=== PATIENT | female | born 1955 | race Two or more races ===

== ENCOUNTER 2024-12-11 03:18 | Inpatient (IN) | payer BC, MEDICAID ==
[2024-12-11] VITALS (7 sets, daily range): BP systolic 109–131; BP diastolic 69–81; PULSE 57–72; RESP 17–20; TEMP 96.4–98.2; O2SAT 95–98
[~2024-12-11] VITALS: Ht 167.6 cm; Wt 69.4 kg
--- NOTE | 2024-12-11 03:50 | ED.PDOC ---
History of Present Illness HPI Comments 69-year-old female who came to ER via EMS for dizziness. Patient denies any medical problems. Patient states she was feeling dizzy, when she had a witnessed near syncopal attack when she was lying at bed. Family members noted that patient appeared confused and nonverbal for about a minute so paramedics were called. Blood sugar on scene was 89, blood pressure 151/77 mm Hg Chief Complaint: Dizziness Time Seen by MD: 03:49 Reviewed Notes: Inspector Fuel Hose Notes Allergies: Coded Allergies: NO KNOWN ALLERGIES (Unverified , 12/11/24) Home Meds Reported Medications Naproxen (NAPROSYN TABLET) 500 Mg Tb, 1 TAB PO BID, #60 TAB 1 Refill 12/11/24 Acetaminophen (Acetaminophen) 325 Mg Tab, 325 MG PO Q4HP PRN for MILD PAIN for 30 Days, MG 0 Refills 12/11/24 Information Source: Patient, Emergency Med Personnel Mode of Arrival: EMS Severity: Moderate Timing: Minutes Duration: Since onset Review of Systems REVIEW OF SYSTEMS: No fever, no chills, or fatigue HEENT: No sore throat, no earache, no congestion, no neck pain. Cardiac: No chest pain. No palpitations. Lungs: No shortness of breath, no cough. GI: No nausea, no vomiting, no diarrhea, no constipation, no abdominal pain : No dysuria, frequency, or urgency. No hematuria. Musculoskeletal: No joint pain , no joint swelling, no extremity edema. Skin: No rash, no itching. Neuro: No headache, (+) dizziness, no weakness (+) fainting Vital Signs Vital Signs Date Time Temp Pulse Resp B/P (MAP) Pulse Ox O2 Delivery O2 Flow Rate FiO2 12/11/24 06:00 72 20 115/66 (82) 12/11/24 05:00 97 12/11/24 04:02 98.5 98.5 12/11/24 04:02 Room Air* 0 21 Physical Exam General: Awake, alert and oriented. No acute distress. Skin: Skin in warm, dry and intact. Appropriate color for ethnicity. Nailbeds pink with no cyanosis. HEENT: The head is normocephalic and atraumatic. Conjunctivae are clear without exudates or hemorrhage. Sclera is non-icteric. EOM are intact. No signs of nystagmus. Eyelids are normal in appearance without swelling or lesions. Oral mucosa is pink and moist Neck: The neck is supple with normal range of motion. No JVD. Cardiac: Heart rate and rhythm are normal. No murmurs, gallops, or rubs are auscultated. Respiratory: No signs of respiratory distress. Lung sounds are clear in all lobes bilaterally without rales, rhonchi, or wheezes. Abdominal: Abdomen is soft, non-tender without distention. Bowel sounds are present and normoactive in all four quadrants. Extremities: Upper and lower extremities are atraumatic in appearance without deformity or edema. Neurological: The patient is awake, alert and oriented to person, place, and time with normal speech. Speech is clear. There is no facial asymmetry. No upper or lower extremity drift. Past Medical History PAST MEDICAL HISTORY: Denies Surgical History: Appendectomy, BTL CHANNEL DEVELOPMENT MANAGER History: Denies all CHANNEL DEVELOPMENT MANAGER Hx Family History Family History: Reviewed,noncontributory to illness Social History Smoker: Non-Smoker Alcohol: Denies ETOH Use Drugs: Denies Drug Use Lives In: Home Was a procedure done? Was a procedure done?: No EKG EKG : Pulse Rate (adult): 74 Cardiac Rhythm: NSR Differential Dx Considerations may include: Anemia, electrolyte imbalance, hypotension, hypoglycemia, syncope,, TIA X-Ray, Labs, Meds, VS Vital Signs Date Time Temp Pulse Resp B/P (MAP) Pulse Ox O2 Delivery O2 Flow Rate FiO2 12/11/24 06:00 72 20 115/66 (82) 12/11/24 05:00 69 22 117/69 (85) 97 12/11/24 04:43 74 12/11/24 04:36 74 12/11/24 04:02 98.5 70 20 120/63 (82) 97 98.5 12/11/24 04:02 70 20 97 Room Air* 0 21 12/11/24 03:27 97.8 82 18 151/75 (100) 99 97.8 Lab Test 12/11/24 07:09 12/11/24 06:07 12/11/24 04:19 Range/Units Troponin I High Sensitivity 28 26 12 </=34 ng/L White Blood Count 5.4 4.4-10.8 10^3/uL Red Blood Count 4.50 4.0-5.20 10^6/uL Hemoglobin 13.5 12.2-16.2 g/dL Hematocrit 40.2 36.0-46.0 % Mean Corpuscular Volume 89.2 80.0-100.0 fL Mean Corpuscular Hemoglobin 30.1 28.0-32.0 pg Mean Corpuscular Hemoglobin Concent 33.7 32.0-36.0 g/dL Red Cell Distribution Width 14.0 11.8-14.3 % Platelet Count 321 140-450 10^3/uL Mean Platelet Volume 7.0 6.9-10.8 fL Neutrophils (%) (Auto) 50.7 37.0-80.0 % Lymphocytes (%) (Auto) 39.4 10.0-50.0 % Monocytes (%) (Auto) 5.9 0.0-12.0 % Eosinophils (%) (Auto) 3.0 0.0-7.0 % Basophils (%) (Auto) 1.0 0.0-2.0 % Neutrophils # (Auto) 2.7 1.6-8.6 10 ^3/uL Lymphocytes # (Auto) 2.1 0.4-5.4 10 ^3/uL Monocytes # (Auto) 0.3 0-1.3 10 ^3/uL Eosinophils # (Auto) 0.2 0-0.8 10 ^3/uL Basophils # (Auto) 0.1 0-0.2 10 ^3/uL Nucleated Red Blood Cells 0.1 % Sodium Level 141 136-145 mmol/L Potassium Level 3.5 3.5-5.1 mmol/L Chloride Level 105 98-107 mmol/L Carbon Dioxide Level 28 20-31 mmol/L Anion Gap 8 5-15 Blood Urea Nitrogen 16 9-23 mg/dL Creatinine 0.83 0.550-1.02 mg/dL Glomerular Filtration Rate Calc 77 >90 mL/min BUN/Creatinine Ratio 19.3 10.0-20.0 Serum Glucose 99 74-106 mg/dL Hemoglobin A1c 5.3 <5.7 % A1C Calcium Level 10.2 8.7-10.4 mg/dL B-Type Natriuretic Peptide 21.69 0-100 pg/mL Triglycerides Level 208 H < 150 mg/dL Cholesterol Level 261 H < 200 mg/dL LDL Cholesterol 185 H < 100 mg/dL HDL Cholesterol 47 40-59 mg/dL Current Medications Medications (Trade) Dose Ordered Sig/Cierra Route Start Time Stop Time Status Last Admin Sodium Chloride 1,000 ml @ 1,000 mls/hr Q1H ONCE IV 12/11/24 03:30 12/11/24 04:29 DC 12/11/24 04:32 Sodium Chloride 500 ml @ 500 mls/hr Q1H ONCE IV 12/11/24 05:30 12/11/24 06:29 DC 12/11/24 05:39 Sodium Chloride 1,000 ml @ 100 mls/hr Q10H ONCE IV 12/11/24 05:30 12/11/24 09:24 DC 12/11/24 05:49 Time of 1ST Reevaluation: 03:45 Reevaluation 1ST: Unchanged Patient Education/Counseling: Need For Follow Up Family Education/Counseling: No Family Present SEPSIS Sepsis Screen Physician Orders Cruise Staff Member (12/11/24 ) Orthostatic Vital Signs (12/11/24 ) Saline Lock (12/11/24 03:20) Fall Precautions Initiated (12/11/24 03:20) Electrocardigram (12/11/24 04:20) Electrocardigram (12/11/24 06:20) Head Without Contrast (12/11/24 03:53) Vital Signs Date Time Temp Pulse Resp B/P (MAP) Pulse Ox O2 Delivery O2 Flow Rate FiO2 12/11/24 06:00 72 20 115/66 (82) 12/11/24 05:00 69 22 117/69 (85) 97 12/11/24 04:43 74 12/11/24 04:36 74 12/11/24 04:02 98.5 70 20 120/63 (82) 97 98.5 12/11/24 04:02 70 20 97 Room Air* 0 21 12/11/24 03:27 97.8 82 18 151/75 (100) 99 97.8 Laboratory Tests Test 12/11/24 04:19 White Blood Count 5.4 10^3/uL (4.4-10.8) Departure 1 Departure Time of Disposition: 21:06 Impression: Primary Impression: Syncope Disposition: 09 ADMITTED INPATIENT Condition: Stable Comments 69 year old female with syncope Patient admitted to hospitalist service for further treatment, evaluation and monitoring. Extensive evaluation was performed in attempt to identify or rule out: (See differential diagnosis section) The following tests were ordered, and results were reviewed by me and discussed with patient: (See diagnostic results section) The following test were independently interpreted by me: EKG I reviewed and agreed with the following test results read by other providers: N/A I reviewed the following notes from the pt's past medical encounters: N/A Additional information was gathered from interviewing the following independent historians: EMS, patient's daughter Discussion of management or test interpretation with external physician/other qualified health rn care transition: N/A Addressed an acute or chronic illness that poses a threat to life or bodily function: Syncope Decision regarding hospitalization or escalation of hospital level of care: Risk and benefits of admission for further treatment of patient's condition was considered. Due to patient's current clinical condition, high risk of decline and poor outcome if discharged and need for further inpatient management and monitoring, patient will be admitted to the hospital. Discussed with patient. Drug therapy requiring intensive monitoring for toxicity: N/A Parenteral controlled substances: N/A Decision regarding elective major surgery with identified patient or procedure risk factors: N/A Decision regarding emergency major surgery: N/A Decision not to resuscitate or to de-escalate care because of poor prognosis: N/A Diagnosis or treatment significantly limited by social determinants of health: Patient lives out of the area, does not have a PCP Critical Care Note Critical Care Time?: No Stability Stability form required: No Heart Score Heart Score: Heart Score Response (Comments) Value History N/A 0 EKG N/A 0 Age N/A 0 Risk Factors N/A 0 Troponin N/A 0 Total 0 I personally scribed for CHARLENE CRUM MD ([email or web address]) on 12/11/24 at 03:50. Electronically submitted by Khanh Lagunas ([employer]). I personally scribed for CHARLENE CRUM MD ([email or web address]) on 12/11/24 at 03:51. Electronically submitted by Khnah Lagunas ([facility]). I personally scribed for CHARLENE CRUM MD ([email or web address]) on 12/11/24 at 04:43. Electronically submitted by Khanh Lagunas ([email or web address]). CHARLENE CRUM MD Dec 11, 2024 03:50
[2024-12-11] MEDS: SODIUM CHLORIDE 0.9% 1,000 ML IV ONE ×2 (04:32→05:49)
[2024-12-11 04:37] LABS: Hematocrit 40.2 % (36.0-46.0); Hemoglobin 13.5 g/dL (12.2-16.2); Mean Corpuscular Hemoglobin 30.1 pg (28.0-32.0); Mean Corpuscular Volume 89.2 fL (80.0-100.0); Nucleated Red Blood Cells % 0.1 %
[2024-12-11 04:47] LABS: Chloride 105 mmol/L (98-107); Sodium 141 mmol/L (136-145)
[2024-12-11 04:48] LABS: Anion Gap 8 (5-15); Carbon Dioxide 28 mmol/L (20-31)
[2024-12-11 04:49] LABS: Calcium 10.2 mg/dL (8.7-10.4); Potassium 3.5 mmol/L (3.5-5.1)
[2024-12-11 04:53] LABS: Glucose 99 mg/dL (74-106)
[2024-12-11 04:54] LABS: BUN/Creatinine Ratio 19.3 (10.0-20.0); Blood Urea Nitrogen 16 mg/dL (9-23)
[2024-12-11] MEDS: SODIUM CHLORIDE 0.9% 500 ML IV ONE (05:39)
--- NOTE | 2024-12-11 05:55 | DVH ---
EXAM: CT HEAD WITHOUT CONTRAST INDICATION: Near syncope, altered mental status TECHNIQUE: CT of the head without intravenous contrast. Radiation Dose : 1. Head: CT Dose: CTDI volume is 53.7 mGy. Dose-length product is 1058.35 mGy*cm The dose indicators for CT are the volume Computed Tomography (CT) Dose Index (CTDIvol) and the Dose Length Product (DLP), and are measured in units of mGy and mGy-cm, respectively. These indicators are not patient dose, but values generated from the CT scanner acquisition factors. The report includes radiation exposure data for exposures received during this examination. COMPARISON: None FINDINGS: There is no evidence of acute intracranial hemorrhage, extra-axial collection, mass effect, midline s hift, herniation or hydrocephalus. The ventricles, sulci and cisterns are age appropriate. The escamilla-white differentiation is intact. The visualized paranasal sinuses and mastoid air cells are clear. The surrounding soft tissues and osseous structures are unremarkable. IMPRESSION: 1. No acute intracranial abnormality. Radiation optimization: All CT scans at this facility use at least one of these dose optimization laith hniques: automated exposure control mA and/or kV adjustment per patient size (includes targeted exam s where dose is matched to clinical indication) or iterative reconstruction.
[2024-12-11] MEDS ORDERED: ACETAMINOPHEN 325 MG TAB PO PRN (08:00)
[2024-12-11] MEDS ORDERED: NITROGLYCERIN 0.4 MG SL TAB SL PRN (08:00)
[2024-12-11] MEDS ORDERED: HYDROcodone-ACET 5/325MG TAB PO PRN (08:00)
[2024-12-11] MEDS ORDERED: ONDANSETRON HCL 4 MG/2 ML VIAL IV PRN (08:00)
[2024-12-11] MEDS ORDERED: MORPHINE SULFATE INJ 2 MG/ml SYRG IV PRN ×2 (08:00)
--- NOTE | 2024-12-11 08:03 | DVHHP2 ---
Admitting Diagnosis: Dizziness History of Present Illness 69 year old female is complaining of dizziness. Family members stated they noticed patient was confused and non verbal, therefore EMS were called. Blood sugar was 89 with blood pressure of 151/77. While in the emergency department the patient was evaluated by the provider. Patient will be admitted for further evaluation and treatment. I discussed admission with the patient/family and is in agreement to treatment plan. Allergies: Coded Allergies: NO KNOWN ALLERGIES (Unverified , 12/11/24) Home Meds Reported Medications Naproxen (NAPROSYN TABLET) 500 Mg Tb, 1 TAB PO BID, #60 TAB 1 Refill 12/11/24 Acetaminophen (Acetaminophen) 325 Mg Tab, 325 MG PO Q4HP PRN for MILD PAIN for 30 Days, MG 0 Refills 12/11/24 Current Medications Current Medications Medications (Trade) Dose Ordered Sig/Cierra Route PRN Reason Start Time Stop Time Status Last Admin Sodium Chloride 1,000 ml @ 120 mls/hr Q8H20M IV 12/11/24 08:00 12/11/24 09:26 Acetaminophen/ Hydrocodone Bitart ([place] 5/325MG Tab) 1 tab Q4HP PRN PO MODERATE PAIN (4-6 PAIN SCALE) 12/11/24 08:00 Ondansetron HCl (Zofran) 4 mg Q4HP PRN IV NAUSEA / VOMITING 12/11/24 08:00 Enoxaparin Sodium (Lovenox) 40 mg DAILY SC 12/11/24 10:00 12/11/24 09:45 Acetaminophen (Tylenol Tablet) 650 mg Q6HP PRN PO PAIN SCALE 1-3 OR TEMP>100.4 12/11/24 08:00 Morphine Sulfate 2 mg Q4HPRN PRN IV SEVERE PAIN (7-10 PAIN SCALE) 12/11/24 08:00 Famotidine (Pepcid Tablet) 40 mg DAILY PO 12/11/24 10:00 12/11/24 09:44 Nitroglycerin (Ntrostat Sublingual) 0.4 mg Q5MINP PRN SL FOR CHEST PAIN 12/11/24 08:00 Morphine Sulfate 2 mg Q30M PRN IV FOR CHEST PAIN 12/11/24 08:00 Hydralazine HCl (Apresoline Injection) 10 mg Q6HP PRN IV SBP>150 12/11/24 13:30 Review of Systems Dizziness Vital Signs Vital Signs Date Time Temp Pulse Resp B/P (MAP) Pulse Ox O2 Delivery O2 Flow Rate FiO2 12/11/24 12:32 96.5 57 17 128/79 (95) 98 96.5 12/11/24 11:45 Room Air* 0 21 Physical Exam General Appearance: alert, no distress HEENT: EOMI, PERRLA, normal external inspect of ears, no icterus, no nasal drainage Neck: no carotid bruit, no jugular venous distention (JVD), no lymphadenopathy Chest: normal thorax Respiratory: clear to auscultation, normal air movement Cardiovascular: regular rate and rhythm, no diastolic murmur, no jugular venous distention (JVD), no rub, no systolic murmur Abdominal: soft, no hepatomegaly, no mass, no splenomegaly, no tenderness Musculoskeletal: no joint tenderness, no swelling Extremities: normal pulses, no calf tenderness, no clubbing, no cyanosis, no edema Skin: no bruising, no jaundice, no rash Neurological: alert, No focal deficit SEPSIS Sepsis Screen Date sepsis recognized/suspect: Dec 11, 2024 Time Sepsis recognized/suspect: 401 Recent Procedure: No On Antibiotic Therapy: No Respiratory Rate >20: No Heart Rate >90: No Temp<36 C (96.8 F) or >38.3 C: No SBP <90 or MAP <65 mmHG: No New Acute Mental Status Change: No Is the patient on CPAP, BIPAP,: No Physician Orders Middleware Engineer (12/11/24 ) Orthostatic Vital Signs (12/11/24 ) Saline Lock (12/11/24 03:20) Fall Precautions Initiated (12/11/24 03:20) Electrocardigram (12/11/24 04:20) Electrocardigram (12/11/24 06:20) Head Without Contrast (12/11/24 03:53) Admit (12/11/24 07:58) Code Status (12/11/24 07:58) Sodium Chloride 0.9% (12/11/24 08:00) Hydrocodone-Acet 5/325mg Tab (Tickfaw 32 (12/11/24 08:00) Ondansetron Hcl (Zofran) (12/11/24 08:00) Enoxaparin Sodium (Lovenox) (12/11/24 10:00) Complete Blood Count (12/12/24 04:00) Comprehensive Metabolic Panel (12/12/24 04:00) Cardiac Diet-2gna,Lofat,Lochol (12/11/24 Breakfast) Echo 2d Mode Cardiac Dop (12/11/24 07:58) Condition: Fair (12/11/24 07:58) Acetaminophen Tablet (Tylenol Tablet) (12/11/24 08:00) Morphine Sulfate Injection (12/11/24 08:00) *Consult Dr. Jay Cassidy (12/11/24 07:58) *Consult Dr. Ashok Christiansen (12/11/24 07:58) Brain Head Wo Contrast (12/11/24 07:58) Famotidine Tablet (Pepcid Tablet) (12/11/24 10:00) Orthostatic Vital Signs (12/11/24 07:58) Nitroglycerin Sublingual (Ntrostat Subli (12/11/24 08:00) Morphine Sulfate Injection (12/11/24 08:00) Stat Ekg For Chest Pain (12/11/24 07:58) Notify Md Of Changes From Base (12/11/24 07:58) Ferry Pilot For 24 Hours (12/11/24 07:58) Emergency Dysrhythmia Protocol (12/11/24 07:58) Rhythm Strips Once Every Shift (12/11/24 07:58) Oxygen By Nasal Cannula (12/11/24 07:58) Chest Xray 1 View (12/11/24 08:02) Hydralazine Injection (Apresoline Inject (12/11/24 13:30) Vital Signs Date Time Temp Pulse Resp B/P (MAP) Pulse Ox O2 Delivery O2 Flow Rate FiO2 12/11/24 12:32 96.5 57 17 128/79 (95) 98 96.5 12/11/24 11:45 72 Room Air* 0 21 12/11/24 10:50 96.4 58 17 131/81 (98) 98 96.4 12/11/24 10:43 62 12/11/24 10:00 59 20 124/76 (92) 96 12/11/24 08:00 66 12/11/24 08:00 Room Air* 0 21 12/11/24 08:00 98.6 98.6 12/11/24 08:00 98.6 67 15 99/68 (78) 96 98.6 12/11/24 06:00 72 20 115/66 (82) 12/11/24 05:00 69 22 117/69 (85) 97 12/11/24 04:43 74 12/11/24 04:36 74 12/11/24 04:02 98.5 70 20 120/63 (82) 97 98.5 12/11/24 04:02 70 20 97 Room Air* 0 21 12/11/24 03:27 97.8 82 18 151/75 (100) 99 97.8 Laboratory Tests Test 12/11/24 04:19 White Blood Count 5.4 10^3/uL (4.4-10.8) Medications Medications Dose Ordered Sig/Cierra Route Start Time Stop Time Status Last Admin Dose Admin Enoxaparin Sodium 40 mg DAILY SC 12/11/24 10:00 12/11/24 09:45 Famotidine 40 mg DAILY PO 12/11/24 10:00 12/11/24 09:44 Sodium Chloride 500 ml @ 500 mls/hr Q1H ONCE IV 12/11/24 05:30 12/11/24 06:29 DC 12/11/24 05:39 Sodium Chloride 1,000 ml @ 100 mls/hr Q10H ONCE IV 12/11/24 05:30 12/11/24 09:24 DC 12/11/24 05:49 Sodium Chloride 1,000 ml @ 120 mls/hr Q8H20M IV 12/11/24 08:00 12/11/24 09:26 Results Labs Test 12/11/24 09:00 12/11/24 07:09 12/11/24 04:19 Range/Units Urine Color Straw Yellow Urine Clarity Clear Clear Urine pH 5.5 5.0-9.0 Urine Specific [place] 1.009 1.001-1.035 Urine Protein Negative Negative Urine Ketones Negative Negative Urine Blood Negative Negative /uL Urine Nitrite Negative Negative Urine Bilirubin Negative Negative Urine Urobilinogen Normal Negative mg/dL Urine Leukocyte Esterase 3+ Negative /uL Urine RBC 4 0 - 4 /hpf Urine Microscopic WBC 11 H 0-5 /HPF Urine Squamous Epithelial Cells Few <5 /hpf Urine Bacteria None seen None Seen /hpf Urine Mucus Few None Seen Urine Glucose Normal Normal mg/dL Troponin I High Sensitivity 28 </=34 ng/L White Blood Count 5.4 4.4-10.8 10^3/uL Red Blood Count 4.50 4.0-5.20 10^6/uL Hemoglobin 13.5 12.2-16.2 g/dL Hematocrit 40.2 36.0-46.0 % Mean Corpuscular Volume 89.2 80.0-100.0 fL Mean Corpuscular Hemoglobin 30.1 28.0-32.0 pg Mean Corpuscular Hemoglobin Concent 33.7 32.0-36.0 g/dL Red Cell Distribution Width 14.0 11.8-14.3 % Platelet Count 321 140-450 10^3/uL Mean Platelet Volume 7.0 6.9-10.8 fL Neutrophils (%) (Auto) 50.7 37.0-80.0 % Lymphocytes (%) (Auto) 39.4 10.0-50.0 % Monocytes (%) (Auto) 5.9 0.0-12.0 % Eosinophils (%) (Auto) 3.0 0.0-7.0 % Basophils (%) (Auto) 1.0 0.0-2.0 % Neutrophils # (Auto) 2.7 1.6-8.6 10 ^3/uL Lymphocytes # (Auto) 2.1 0.4-5.4 10 ^3/uL Monocytes # (Auto) 0.3 0-1.3 10 ^3/uL Eosinophils # (Auto) 0.2 0-0.8 10 ^3/uL Basophils # (Auto) 0.1 0-0.2 10 ^3/uL Nucleated Red Blood Cells 0.1 % Sodium Level 141 136-145 mmol/L Potassium Level 3.5 3.5-5.1 mmol/L Chloride Level 105 98-107 mmol/L Carbon Dioxide Level 28 20-31 mmol/L Anion Gap 8 5-15 Blood Urea Nitrogen 16 9-23 mg/dL Creatinine 0.83 0.550-1.02 mg/dL Glomerular Filtration Rate Calc 77 >90 mL/min BUN/Creatinine Ratio 19.3 10.0-20.0 Serum Glucose 99 74-106 mg/dL Hemoglobin A1c 5.3 <5.7 % A1C Calcium Level 10.2 8.7-10.4 mg/dL B-Type Natriuretic Peptide 21.69 0-100 pg/mL Triglycerides Level 208 H < 150 mg/dL Cholesterol Level 261 H < 200 mg/dL LDL Cholesterol 185 H < 100 mg/dL HDL Cholesterol 47 40-59 mg/dL Primary Diagnosis - Dizziness Neurology consult, MRI of the brain, orthostatic vitals, medication, monitoring - Syncope Cardiology consult, medication, monitoring -Benign essential hypertension Cardiology consult, echo, medication, lipid panel, monitoring Plan discussed with: Patient, Other JUAN C MITCHELL NP Dec 11, 2024 08:03
--- NOTE | 2024-12-11 08:41 | DVH ---
CHEST RADIOGRAPH Indication: r/o infection Technique: XY CHEST XRAY 1 VIEW Comparison: None FINDINGS: The cardiac silhouette is unremarkable. The lungs demonstrate no pulmonary airspace consolidation. Th e pulmonary vasculature is unremarkable. There is no pleural effusion.. There is no pneumothorax. IMPRESSION: No pulmonary airspace consolidation.
--- NOTE | 2024-12-11 08:52 | ECG ---
[facility] Test Date: 2024-12-11 Test Time: 04:36:08 Pat Name: MAY IVY Department: ED Room: 0240T Gender: F Clinic Office Manager: : [id number] Requested By: CHARLENE CRUM Order Number: [id number] Reading MD: Bernabe Neville Measurements Intervals Mercer Rate: 74 P: 72 PA: 161 QRS: 77 QRSD: 93 T: 64 QT: 412 QTc: 457 Interpretive Statements Sinus rhythm Electronically Signed On 12-12-2024 19:29:51 PDT by Bernabe Neville Please click the below link to view image of tracing.
[2024-12-11] MEDS: SODIUM CHLORIDE 0.9% 1,000 ML IV SCH (09:26)
[2024-12-11] MEDS: FAMOTIDINE 20 MG TAB PO SCH (09:44)
[2024-12-11] MEDS: ENOXAPARIN SOD 40 MG/0.4 ML SYRINGE SC SCH (09:45)
[2024-12-11 10:01] LABS: Urine Protein, UAD Negative (Negative)
[2024-12-11] MEDS ORDERED: ACET-1881 PO (12:35)
[2024-12-11] MEDS ORDERED: NAP500T PO (12:35)
--- NOTE | 2024-12-11 13:18 | DVHSR ---
APPROVED REPORT EXAM: Two-dimensional and M-mode echocardiogram with Doppler and color Doppler. Blood Pressure: 115/66 mmHg INDICATION Syncope RISK FACTORS Height: 5' 6", Weight: 151 DIMENSIONS LVDd5.0 (3.8-5.7cm)LA (2D)4.0 (1.9-4.0cm)Aortic Root3.3 (2.0-3.7cm) LVDs3.9 (2.5-4.0cm)LA (MM) (1.9-4.0cm)Aortic Cusp Exc1.9 (1.5-2.0cm) EF (%) 45.0 (55-70%)Rt. Atrium3.9 (1.9-4.0cm)Asc. Aorta cm IVSd0.9 (0.7-1.1cm)RV (D) (1.8-2.4cm) PWd0.9 (0.7-1.1cm) Mitral Valve MitralMitral Stenosis E wave0.90m/sMV Mean GR.mmHg A wave0.80m/sMV Peak GR.mmHg E/A ratio1.12D MVAcm2 Aortic Valve Aortic ValveAortic Stenosis V10.70m/Natalee Mean GR.3mmHg V21.10m/Natalee Peak GR.5mmHg LVOT Diameter2.2 (1.8-2.4cm)Doppler AVA2.42cm2 Tricuspid Valve TR Velocity1.60m/s [id number] Conclusion Left ventricle is mildly dilated with mildly reduced systolic function. LVEF was around 45%. Mild d iffuse hypokinesis was seen. Diastolic function was considered normal. Right ventricle was normal-sized with normal systolic function. Both atria were normal-sized. Aortic valve was trileaflet. There was no aortic insufficiency/stenosis. There was no mitral regurg itation. There was trace tricuspid regurgitation. Pulmonary valve was not well visualized. Right ventricular systolic pressure was normal at 20 mm Hg. There was trace pericardial effusion.
--- NOTE | 2024-12-11 13:24 | DVH ---
MRI BRAIN HEAD WO CONTRAST INDICATION: dizziness EXAM DATE: 12/11/2024 12:34 PM COMPARISON: None PROCEDURE: Using a 1.5 Joan scanner, multisequence multiplanar imaging of the brain was obtained. FINDINGS: The brainshows normal morphology and signal characteristics. No abnormal T2 hyperintensity, diffusion restriction, or susceptibility hypointensity is present. The ventricles are normal in size . The midline structures are intact. The major intracranial flow voids are present. The aerated space s are normal. The orbital contents and extracranial soft tissues appear normal. IMPRESSION: No acute abnormal MRI findings of the brain.
[2024-12-11] MEDS ORDERED: hydrALAZINE HCL 20 MG/ML VL IV PRN (13:30)
[2024-12-11 13:57] LABS: HDL Cholesterol 47 mg/dL (40-59)
[2024-12-11 13:59] LABS: Cholesterol 261 mg/dL (< 200); Triglycerides 208 mg/dL (< 150)
--- NOTE | 2024-12-11 14:51 | DVHINCON2 ---
Date of service: Dec 11, 2024 History of Present Illness HPI Patient is a 69-year-old Grenadian-speaking lady who presented with dizziness and loss of consciousness. Information was obtained by talking to the patient and family members at bedside and over the phone. It seems that the patient lost consciousness for many minutes and had seizure-like activity at that point. She regained consciousness very slowly. Cardiology is involved to rule out cardiac etiology for presentation. Presentation is questioning seizures. Patient denies any palpitations. Patient denies any fall. Patient denies follow-up with restaurant greeter/physicians as outpatient. Home Meds Reported Medications Naproxen (NAPROSYN TABLET) 500 Mg Tb, 1 TAB PO BID, #60 TAB 1 Refill 12/11/24 Acetaminophen (Acetaminophen) 325 Mg Tab, 325 MG PO Q4HP PRN for MILD PAIN for 30 Days, MG 0 Refills 12/11/24 Past Medical History Others Denies previous past medical history. Mentions occasional vertigo for which takes unknown medication. Has had appendectomy and bilateral tubal ligation before. Patient Family History: Patient reports no known family medical history. Smoker: No Hx (Negative) Alocohol: None Lives with: With family Review of Systems Constitutional: No symptom reported Ears, Nose, & Throat: No symptom reported Pulmonary/Respiratory: No symptom reported Gastrointestinal: No symptom reported All Other Systems Fourteen point review of system was performed. Relevant findings as per above and as per HPI. Otherwise negative. H&P Exam Vital Signs Vital Signs Date Time Temp Pulse Resp B/P (MAP) Pulse Ox O2 Delivery O2 Flow Rate FiO2 12/11/24 12:32 96.5 57 17 128/79 (95) 98 96.5 12/11/24 08:00 Room Air* 0 21 General Appeara: Well developed Head Exam: Normal inspection Eye Exam: bilateral eye PERRL Mouth: Normal Inspection Pulmonary/Respiratory: Lungs clear Cardiovascular/Chest: Normal inspection, Regular rate Peripheral Pulses: 2+ carotid (R), 2+ carotid (L), 2+ femoral (R), 2+ femoral ( L), 2+ dorsalis pedis (R), 2+ dorsalis pedis (L), 2+ Radial (R), 2+ Radial (L) Abdominal Exam: Normal bowel sounds, Soft, No hepatospenomegaly Neuro/Mental St: Alert, Oriented Appearance: Appropriate appearance Eye contact/ Speech: Cooperative Thoughts/Psych: Normal thought pattern Labs/Xrays Labs Test 12/11/24 09:00 12/11/24 07:09 12/11/24 04:19 Range/Units Urine Color Straw Yellow Urine Clarity Clear Clear Urine pH 5.5 5.0-9.0 Urine Specific [place] 1.009 1.001-1.035 Urine Protein Negative Negative Urine Ketones Negative Negative Urine Blood Negative Negative /uL Urine Nitrite Negative Negative Urine Bilirubin Negative Negative Urine Urobilinogen Normal Negative mg/dL Urine Leukocyte Esterase 3+ Negative /uL Urine RBC 4 0 - 4 /hpf Urine Microscopic WBC 11 H 0-5 /HPF Urine Squamous Epithelial Cells Few <5 /hpf Urine Bacteria None seen None Seen /hpf Urine Mucus Few None Seen Urine Glucose Normal Normal mg/dL Troponin I High Sensitivity 28 </=34 ng/L White Blood Count 5.4 4.4-10.8 10^3/uL Red Blood Count 4.50 4.0-5.20 10^6/uL Hemoglobin 13.5 12.2-16.2 g/dL Hematocrit 40.2 36.0-46.0 % Mean Corpuscular Volume 89.2 80.0-100.0 fL Mean Corpuscular Hemoglobin 30.1 28.0-32.0 pg Mean Corpuscular Hemoglobin Concent 33.7 32.0-36.0 g/dL Red Cell Distribution Width 14.0 11.8-14.3 % Platelet Count 321 140-450 10^3/uL Mean Platelet Volume 7.0 6.9-10.8 fL Neutrophils (%) (Auto) 50.7 37.0-80.0 % Lymphocytes (%) (Auto) 39.4 10.0-50.0 % Monocytes (%) (Auto) 5.9 0.0-12.0 % Eosinophils (%) (Auto) 3.0 0.0-7.0 % Basophils (%) (Auto) 1.0 0.0-2.0 % Neutrophils # (Auto) 2.7 1.6-8.6 10 ^3/uL Lymphocytes # (Auto) 2.1 0.4-5.4 10 ^3/uL Monocytes # (Auto) 0.3 0-1.3 10 ^3/uL Eosinophils # (Auto) 0.2 0-0.8 10 ^3/uL Basophils # (Auto) 0.1 0-0.2 10 ^3/uL Nucleated Red Blood Cells 0.1 % Sodium Level 141 136-145 mmol/L Potassium Level 3.5 3.5-5.1 mmol/L Chloride Level 105 98-107 mmol/L Carbon Dioxide Level 28 20-31 mmol/L Anion Gap 8 5-15 Blood Urea Nitrogen 16 9-23 mg/dL Creatinine 0.83 0.550-1.02 mg/dL Glomerular Filtration Rate Calc 77 >90 mL/min BUN/Creatinine Ratio 19.3 10.0-20.0 Serum Glucose 99 74-106 mg/dL Hemoglobin A1c 5.3 <5.7 % A1C Calcium Level 10.2 8.7-10.4 mg/dL B-Type Natriuretic Peptide 21.69 0-100 pg/mL Triglycerides Level 208 H < 150 mg/dL Cholesterol Level 261 H < 200 mg/dL LDL Cholesterol 185 H < 100 mg/dL HDL Cholesterol 47 40-59 mg/dL Assessment/Plan Plan Patient is a 69-year-old [place]adian-speaking lady who presented with dizziness and loss of consciousness. Information was obtained by talking to the patient and family members at bedside and over the phone. It seems that the patient lost consciousness for many minutes and had seizure-like activity at that point. She regained consciousness very slowly. Cardiology is involved to rule out cardiac etiology for presentation. Presentation is questioning seizures. Patient denies any palpitations. Patient denies any fall. Patient denies follow-up with restaurant greeter/physicians as outpatient. Not in acute distress. Lying flat in bed. No JVD. Mucosa is pink and wet. There was no goiter. There is no carotid bruit. Lungs are clear to auscultation. Not using accessory muscles of breathing. Cardiac: Regular, no thrill/gallop. Abdomen is soft. There is no mass. Bowel sound is positive. There is no hepatomegaly. There is no peripheral edema. Dorsalis pedis 2+ bilateral Denies previous past medical history. Mentions occasional vertigo for which takes unknown medication. Has had appendectomy and bilateral tubal ligation before. Creatinine: 0.83 Potassium: 3.5 Troponin (high sensitive): BNP: 21.69 Chest x-ray revealed: IMPRESSION: No pulmonary airspace consolidation. CT of the head revealed: IMPRESSION: 1. No acute intracranial abnormality. MRI of the brain reported: IMPRESSION: No acute abnormal MRI findings of the brain. EKG reveals sinus rhythm with nonspecific ST-T changes Tele reveals sinus rhythm Echocardiogram reported: Left ventricle is mildly dilated with mildly reduced systolic function. LVEF was around 45%. Mild diffuse hypokinesis was seen. Diastolic function was considered normal. Right ventricle was normal-sized with normal systolic function. Both atria were normal-sized. Aortic valve was trileaflet. There was no aortic insufficiency/stenosis. There was no mitral regurgitation. There was trace tricuspid regurgitation. Pulmonary valve was not well visualized. Right ventricular systolic pressure was normal at 20 mm Hg. There was trace pericardial effusion. Patient is a 69-year-old female who presented with loss of consciousness. Presentation questions seizures activity. As per patient family members, the patient has had these episodes few times back. Presentation is in favor of seizures with postictal episode. Even though echocardiogram reveals mildly reduced systolic function, diastolic function was considered normal and at this point heart failure is not considered. Loss of consciousness Seizure attack History of appendectomy History of vertigo Cardiac suggestion for management: Manage on telemetry Follow-up electrolytes and kidney function tests and correct abnormalities Neurology evaluation and possible EEG suggested Long-term monitor can be arranged as outpatient Further evaluation and management depends on the above and clinical course Thank you for consultation A total of 75 minutes was spent reviewing the patient record, examining the patient, making a diagnostic and therapeutic plan, discussing this plan with medical personnel, following up on diagnostic studies and following the patient for clinical stability excluding any and all procedures. At least 50% of this time was spent in direct, [id number] contact. Thank you for allowing me to participate in this patient's care. Further recommendations will depend on patient's clinical course. Please do not hesitate to contact me if you have any questions or concerns. This medical document was created using electronic medical record system with [email or web address] computerized dictation system. Although this document has been carefully reviewed, there may still be some phonetic and typographical errors. These areas are purely typographical due to the imperfection of the software programs, and do not reflect any compromise in the patient's medical care. Plan discussed with: Other (nurse) PAOLA TEMPLETON MD Dec 11, 2024 14:51
[2024-12-12] VITALS (7 sets, daily range): BP systolic 101–113; BP diastolic 56–71; PULSE 52–70; RESP 16–18; TEMP 97.8–98.3; O2SAT 96–98
[2024-12-12 06:30] LABS: Hematocrit 34.5 % (36.0-46.0); Hemoglobin 11.8 g/dL (12.2-16.2); Mean Corpuscular Hemoglobin 30.4 pg (28.0-32.0); Mean Corpuscular Volume 88.7 fL (80.0-100.0); Nucleated Red Blood Cells % 0.0 %
[2024-12-12 06:56] LABS: Alanine Aminotransferase 12 U/L (7-40); Albumin 3.6 g/dL (3.2-4.8); Anion Gap 7 (5-15); BUN/Creatinine Ratio 15.7 (10.0-20.0); Blood Urea Nitrogen 13 mg/dL (9-23); Calcium 9.2 mg/dL (8.7-10.4); Carbon Dioxide 25 mmol/L (20-31); Glucose 87 mg/dL (74-106); Potassium 4.1 mmol/L (3.5-5.1); Sodium 141 mmol/L (136-145); Total Protein 5.8 g/dL (5.7-8.2)
[2024-12-12 06:57] LABS: Bilirubin, Total 1.4 mg/dL (0.2-1.0); Chloride 109 mmol/L (98-107)
[2024-12-12 06:59] LABS: Alkaline Phosphatase 57 U/L (46-116)
--- NOTE | 2024-12-12 07:30 | DVHPN2 ---
Progress Note - Dictate Date Seen: Dec 12, 2024 Medical Necessity Reason Pt with a Central, PICC or Fol: No vital signs Vital Sign Date Time Temp Pulse Resp B/P (MAP) Pulse Ox O2 Delivery O2 Flow Rate FiO2 12/12/24 05:00 98.0 60 18 106/69 (81) 96 98.0 12/11/24 20:00 Room Air* 0 21 Total Intake and Output 12/11/24 12/11/24 12/12/24 15:00 23:00 07:00 Intake Total 600 ml 800 ml Balance 600 ml 800 ml medications Current Medications Medications Dose Ordered Sig/Cierra Route Start Time Stop Time Status Last Admin Dose Admin Sodium Chloride 1,000 ml @ 120 mls/hr Q8H20M IV 12/11/24 08:00 12/12/24 00:30 120 MLS/HR Acetaminophen/ Hydrocodone Bitart 1 tab Q4HP PRN PO 12/11/24 08:00 Ondansetron HCl 4 mg Q4HP PRN IV 12/11/24 08:00 Enoxaparin Sodium 40 mg DAILY SC 12/11/24 10:00 12/11/24 09:45 40 MG Acetaminophen 650 mg Q6HP PRN PO 12/11/24 08:00 Morphine Sulfate 2 mg Q4HPRN PRN IV 12/11/24 08:00 Famotidine 40 mg DAILY PO 12/11/24 10:00 12/11/24 09:44 40 MG Nitroglycerin 0.4 mg Q5MINP PRN SL 12/11/24 08:00 Morphine Sulfate 2 mg Q30M PRN IV 12/11/24 08:00 Hydralazine HCl 10 mg Q6HP PRN IV 12/11/24 13:30 laboratory and microbiology Laboratory Tests 12/12/24 05:52 Test 12/12/24 05:52 Range/Units Serum Glucose 87 74-106 mg/dL Assessment/Plan Patient is a 69-year-old Chilean-speaking lady who presented with dizziness and loss of consciousness. Information was obtained by talking to the patient and family members at bedside and over the phone. It seems that the patient lost consciousness for many minutes and had seizure-like activity at that point. She regained consciousness very slowly. Cardiology is involved to rule out cardiac etiology for presentation. Presentation is questioning seizures. Patient denies any palpitations. Patient denies any fall. Patient denies follow-up with upsetter/physicians as outpatient. Not in acute distress. Lying flat in bed. No JVD. Mucosa is pink and wet. There was no goiter. There is no carotid bruit. Lungs are clear to auscultation. Not using accessory muscles of breathing. Cardiac: Regular, no thrill/gallop. Abdomen is soft. There is no mass. Bowel sound is positive. There is no hepatomegaly. There is no peripheral edema. Dorsalis pedis 2+ bilateral Denies previous past medical history. Mentions occasional vertigo for which takes unknown medication. Has had appendectomy and bilateral tubal ligation before. Creatinine: 0.83 - 0.83 Potassium: 3.5 - 4.1 Troponin (high sensitive): BNP: 21.69 LDL: 185 Chest x-ray revealed: IMPRESSION: No pulmonary airspace consolidation. CT of the head revealed: IMPRESSION: 1. No acute intracranial abnormality. MRI of the brain reported: IMPRESSION: No acute abnormal MRI findings of the brain. EKG reveals sinus rhythm with nonspecific ST-T changes Tele reveals sinus rhythm Echocardiogram reported: Left ventricle is mildly dilated with mildly reduced systolic function. LVEF was around 45%. Mild diffuse hypokinesis was seen. Diastolic function was considered normal. Right ventricle was normal-sized with normal systolic function. Both atria were normal-sized. Aortic valve was trileaflet. There was no aortic insufficiency/stenosis. There was no mitral regurgitation. There was trace tricuspid regurgitation. Pulmonary valve was not well visualized. Right ventricular systolic pressure was normal at 20 mm Hg. There was trace pericardial effusion. Patient is a 69-year-old female who presented with loss of consciousness. Presentation questions seizures activity. As per patient family members, the patient has had these episodes few times back. Presentation is in favor of seizures with postictal episode. Even though echocardiogram reveals mildly reduced systolic function, diastolic function was considered normal and at this point heart failure is not considered. Loss of consciousness Seizure attack History of appendectomy History of vertigo Cardiac suggestion for management: Manage on telemetry Follow-up electrolytes and kidney function tests and correct abnormalities Consider Lipitor Neurology evaluation and possible EEG is suggested Long-term monitor can be arranged as outpatient Further evaluation and management depends on the above and clinical course A total of 55 minutes was spent reviewing the patient record, examining the patient, making a diagnostic and therapeutic plan, discussing this plan with medical personnel, following up on diagnostic studies and following the patient for clinical stability excluding any and all procedures. At least 50% of this time was spent in direct, [id number] contact. Thank you for allowing me to participate in this patient's care. Further recommendations will depend on patient's clinical course. Please do not hesitate to contact me if you have any questions or concerns. This medical document was created using electronic medical record system with [employer] computerized dictation system. Although this document has been carefully reviewed, there may still be some phonetic and typographical errors. These areas are purely typographical due to the imperfection of the software programs, and do not reflect any compromise in the patient's medical care. Plan discussed with: Other (nurse) PAOLA TEMPLETON MD Dec 12, 2024 07:30
--- NOTE | 2024-12-12 09:15 | DVHINCON2 ---
Date of service: Dec 12, [address] Cassidy Reason for Consultation Seizure-like activity History of Present Illness My history is not the same as ER documentation Ms. Thorne is a right-handed 69 years old female without a history of major medical problem, she was admitted for a chief complaint of convulsion. At this time, she is alert and fully oriented, but she has company amnesia about what happened to her, the history is obtained for her with her son-in-law interpretation He remembers going to the bed, but the next memory was waking up in the hospital, he reports company amnesia in between According to her daughter and son-in-law, around 12/11/2024 0230, when she was lying in the bed talked to her , she suddenly stopped talking, screaming loud, followed by whole-body shaking for about 10 minutes, meanwhile her eyes were closed, and she was nonresponsive, there was no biting or incontinence, about 10 minutes later, she woke up, she was able to walk around, but was confused. She has reported pain in the left year on 12/11/2024 Early 11/2024, when she was weak but he could, she has a event where she talks slowly In the beginning of 2024, when she was lying down in the bed, she had a spells event where her whole-body was shaking, with nonresponsiveness, the patient was seen in the local hospital in [place]. Since 2021, wants 2-3 weeks, Sondra's spell of vertigo/spinning sensation lasting for a few hours with confusion, poor memory/amnesia (she does not remember what happened during the events), she sees doctors in [place] on was given a medication for symptom control She had headache once a while He denies symptoms of olfactory/gustatory hallucination, she has no history of traumatic brain injury, intracranial infection, or family history of seizure disorder, she has not recent acute illness. Daughter and son-in-law reported stress on her and this suspect anxiety on her, but they have not brought this issue to a medical attention Urinalysis, 12/28/2024: WBC: 12, urine leukocyte esterase: 3+ CBC, 12/28/2024: Unremarkable TBI/AST/ALT/AP, 12/12/2024: 1.4// TG/HDL/LDL/HDL, 12/11/2024: 208/261/185/47 MRI head, 12/11/2024: No acute abnormal MRI findings of the brain Past Medical History She denies major medical problems, but family relates she has nurse less and easily distress out Past Surgical History Appendectomy, BTL Family History: Patient reports no known family medical history. Family History She denies major medical problem in the family, including hypertension, diabetes, heart trouble, seizure, anxiety, depression, or alcohol problem Social History She has no history of smoking, alcohol or drug abuse. She is not licensed to pascual tian Allergies: Coded Allergies: NO KNOWN ALLERGIES (Unverified , 12/11/24) Home Meds Reported Medications Naproxen (NAPROSYN TABLET) 500 Mg Tb, 1 TAB PO BID, #60 TAB 1 Refill 12/11/24 Acetaminophen (Acetaminophen) 325 Mg Tab, 325 MG PO Q4HP PRN for MILD PAIN for 30 Days, MG 0 Refills 12/11/24 Current Medications Current Medications Medications (Trade) Dose Ordered Sig/Cierra Route PRN Reason Start Time Stop Time Status Last Admin Enoxaparin Sodium (Lovenox) 40 mg DAILY SC 12/11/24 10:00 12/11/24 09:45 Famotidine (Pepcid Tablet) 40 mg DAILY PO 12/11/24 10:00 12/11/24 09:44 Hydralazine HCl (Apresoline Injection) 10 mg Q6HP PRN IV SBP>150 12/11/24 13:30 Atorvastatin Calcium (Lipitor) 40 mg HS PO 12/12/24 22:00 UNV Review of Systems As above, the other systems are negative Vital Signs Vital Signs Date Time Temp Pulse Resp B/P (MAP) Pulse Ox O2 Delivery O2 Flow Rate FiO2 12/12/24 08:50 97.9 52 16 109/56 (73) 98 97.9 12/11/24 20:00 Room Air* 0 21 Physical Exam GENERAL EXAM: General: the patient is well developed and nourished. No acute distress. HEENT: Normocephalic, neck is supple, no carotid bruits. No mass. RESPIRATORY: Normal respiratory effort with symmetrical lung expansion. Lungs clear to auscultation. CARDIOVASCULAR: Regular rate and rhythm with no murmurs. S1, S2. ABDOMEN: Soft, nontender, normal bowel sound NEUROLOGICAL: MENTAL STATUS: Awake and alert. Oriented to person, place, time and general circumstances. Able to give personal history. SPEECH, LANGUAGE, HIGHER CORTICAL FUNCTION: no aphasia or dysathria. CRANIAL NERVES: #2: Intact visual harden to confrontation. The optic discs were sharp. Retinal background was uniformly pink in appearance. There was no hemorrhages or exudates. #3,4,6: Pupils are equal, round and reactive. EOMs full and conjugate. Mild bilateral gaze evoked nystagmus. #5: Facial sensation intact in all three divisions bilaterally. Mandibular strength intact. #7: Facial muscles symmetrical and strength intact. #8: Hearing grossly normal to voice. No tenderness to palpation in bilateral muscle processes and ears #9,10: Uvula and soft palate rise in the midline. Swallow and voice are normal. #11: Trapezius and sternomastoid strength intact bilaterally. #12: Tongue midline. No fasciculations or atrophy. SENSATION: Sensation to touch and pinprick is normal. MOTOR: Normal tone in the upper and lower extremity. Normal muscle bulk. No fasciculations. No abnormal movements or posturing. Muscle strength of the major groups in the upper extremities is 5/5. Muscle strength of the major groups in the lower extremities is 5/5. REFLEXES: Deep tendon reflexes normal and symmetrical. No pathological reflexes. CEREBELLAR/COORDINATION: Finger to nose and heel to love are normal bilaterally. GAIT/STATION: deferred. Labs/Diagnostic Data Labs Test 12/12/24 05:52 12/11/24 09:00 12/11/24 07:09 12/11/24 04:19 Range/Units White Blood Count 5.4 4.4-10.8 10^3/uL Red Blood Count 3.89 L 4.0-5.20 10^6/uL Hemoglobin 11.8 L 12.2-16.2 g/dL Hematocrit 34.5 #L 36.0-46.0 % Mean Corpuscular Volume 88.7 80.0-100.0 fL Mean Corpuscular Hemoglobin 30.4 28.0-32.0 pg Mean Corpuscular Hemoglobin Concent 34.3 32.0-36.0 g/dL Red Cell Distribution Width 14.2 11.8-14.3 % Platelet Count 267 140-450 10^3/uL Mean Platelet Volume 7.3 6.9-10.8 fL Neutrophils (%) (Auto) 48.3 37.0-80.0 % Lymphocytes (%) (Auto) 41.5 10.0-50.0 % Monocytes (%) (Auto) 7.0 0.0-12.0 % Eosinophils (%) (Auto) 2.7 0.0-7.0 % Basophils (%) (Auto) 0.5 0.0-2.0 % Neutrophils # (Auto) 2.6 1.6-8.6 10 ^3/uL Lymphocytes # (Auto) 2.3 0.4-5.4 10 ^3/uL Monocytes # (Auto) 0.4 0-1.3 10 ^3/uL Eosinophils # (Auto) 0.1 0-0.8 10 ^3/uL Basophils # (Auto) 0 0-0.2 10 ^3/uL Nucleated Red Blood Cells 0.0 % Sodium Level 141 136-145 mmol/L Potassium Level 4.1 3.5-5.1 mmol/L Chloride Level 109 H 98-107 mmol/L Carbon Dioxide Level 25 20-31 mmol/L Anion Gap 7 5-15 Blood Urea Nitrogen 13 9-23 mg/dL Creatinine 0.83 0.550-1.02 mg/dL Glomerular Filtration Rate Calc 77 >90 mL/min BUN/Creatinine Ratio 15.7 10.0-20.0 Serum Glucose 87 74-106 mg/dL Calcium Level 9.2 8.7-10.4 mg/dL Total Bilirubin 1.4 H 0.2-1.0 mg/dL Aspartate Amino Transferase (AST) 20 13-40 U/L Alanine Aminotransferase (ALT) 12 7-40 U/L Alkaline Phosphatase 57 46-116 U/L Total Protein 5.8 5.7-8.2 g/dL Albumin 3.6 3.2-4.8 g/dL Urine Color Straw Yellow Urine Clarity Clear Clear Urine pH 5.5 5.0-9.0 Urine Specific [place] 1.009 1.001-1.035 Urine Protein Negative Negative Urine Ketones Negative Negative Urine Blood Negative Negative /uL Urine Nitrite Negative Negative Urine Bilirubin Negative Negative Urine Urobilinogen Normal Negative mg/dL Urine Leukocyte Esterase 3+ Negative /uL Urine RBC 4 0 - 4 /hpf Urine Microscopic WBC 11 H 0-5 /HPF Urine Squamous Epithelial Cells Few <5 /hpf Urine Bacteria None seen None Seen /hpf Urine Mucus Few None Seen Urine Glucose Normal Normal mg/dL Troponin I High Sensitivity 28 </=34 ng/L Hemoglobin A1c 5.3 <5.7 % A1C B-Type Natriuretic Peptide 21.69 0-100 pg/mL Triglycerides Level 208 H < 150 mg/dL Cholesterol Level 261 H < 200 mg/dL LDL Cholesterol 185 H < 100 mg/dL HDL Cholesterol 47 40-59 mg/dL Assessment Convulsion/seizure-like activity Epileptic seizure Nonepileptic seizure Syncopal event Vertigo ? Meniere's disease ? TIA/stroke Rule out seizure ? Anxiety Plan/Recommendation Monitoring Supportive treatment Telemetry EEG MR brain scan Ativan for seizure breakthrough Preventive seizure treatment is not indicated Tele psych consultation DVT prophylaxis GI prophylaxis Follow up her doctors SUJEY on discharge Cardiology on case More recommendation per clinical course Progress: Poor This medical document was created using an electronic medical record system with [employer] dictation system. Although this document has been carefully reviewed, there may still be some phonetic and typographical errors. These areas are purely typographical due to imperfections of the software programs, and do not reflect any compromise in the patient's medical care. Plan discussed with: Patient, Daughter, Son, Other NAIMA MCDONALD MD Dec 12, 2024 09:15
[2024-12-12] MEDS ORDERED: LORazepam 2MG/ML-1ML VIAL IV PRN ×2 (10:45)
--- NOTE | 2024-12-12 13:57 | DVHPN2 ---
Progress Note - Dictate Date Seen: Dec 12, 2024 Medical Necessity Reason Pt with a Central, PICC or Fol: No vital signs Vital Sign Date Time Temp Pulse Resp B/P (MAP) Pulse Ox O2 Delivery O2 Flow Rate FiO2 12/12/24 08:50 97.9 52 16 109/56 (73) 98 97.9 12/12/24 08:00 Room Air* 0 21 Total Intake and Output 12/11/24 12/11/24 12/12/24 14:59 22:59 06:59 Intake Total 600 ml 800 ml Balance 600 ml 800 ml medications Current Medications Medications Dose Ordered Sig/Cierra Route Start Time Stop Time Status Last Admin Dose Admin Sodium Chloride 1,000 ml @ 120 mls/hr Q8H20M IV 12/11/24 08:00 12/12/24 09:00 120 MLS/HR Acetaminophen/ Hydrocodone Bitart 1 tab Q4HP PRN PO 12/11/24 08:00 Ondansetron HCl 4 mg Q4HP PRN IV 12/11/24 08:00 Enoxaparin Sodium 40 mg DAILY SC 12/11/24 10:00 12/12/24 09:50 40 MG Acetaminophen 650 mg Q6HP PRN PO 12/11/24 08:00 Morphine Sulfate 2 mg Q4HPRN PRN IV 12/11/24 08:00 Famotidine 40 mg DAILY PO 12/11/24 10:00 12/12/24 09:50 40 MG Nitroglycerin 0.4 mg Q5MINP PRN SL 12/11/24 08:00 Morphine Sulfate 2 mg Q30M PRN IV 12/11/24 08:00 Hydralazine HCl 10 mg Q6HP PRN IV 12/11/24 13:30 Atorvastatin Calcium 40 mg HS PO 12/12/24 22:00 Lorazepam 1 mg ONCE PRN IV 12/12/24 10:45 Lorazepam 1 mg Q5MINP PRN IV 12/12/24 10:45 laboratory and microbiology Laboratory Tests 12/12/24 05:52 Test 12/12/24 05:52 Range/Units Serum Glucose 87 74-106 mg/dL Problem List - Dizziness Neurology consult, MRI of the brain, orthostatic vitals, medication, monitoring - Syncope Cardiology consult, medication, monitoring -Benign essential hypertension Cardiology consult, echo, medication, lipid panel, monitoring -Breakthrough seizure Seizure precautions, antiepileptics Assessment/Plan Subjective Patient is awake and alert Objective I discussed plan of care with patient's daughter and and patient. Apparently patient has had a history of seizure in the past. She states she was treated in [place] as well as for vertigo. She states she was given injections however upon further discussion the injections appear to be for the vertigo and she has not received medications for her epilepsy. Patient apparently had a 4- minute epileptic seizure prior to admission and it became syncopal afterwards. MRI is negative for CVA. Plan Continue current treatment. Waiting on cardiology and neurology evaluation. Plan discussed with: Patient, Other JUAN C MITCHELL NP Dec 12, 2024 13:57
[2024-12-12] MEDS: ATORVASTATIN 20 MG TAB PO SCH (22:01)
[2024-12-13] VITALS (8 sets, daily range): BP systolic 95–122; BP diastolic 60–75; PULSE 55–84; RESP 16–18; TEMP 97.7–98.4; O2SAT 93–98
--- NOTE | 2024-12-13 08:59 | DVHPN2 ---
Progress Note - Dictate Date Seen: Dec 13, 2024 Medical Necessity Reason Pt with a Central, PICC or Fol: No vital signs Vital Sign Date Time Temp Pulse Resp B/P (MAP) Pulse Ox O2 Delivery O2 Flow Rate FiO2 12/13/24 05:00 97.8 62 18 120/75 (90) 95 97.8 12/12/24 20:00 Room Air* 0 21 Total Intake and Output 12/12/24 12/12/24 12/13/24 15:00 23:00 07:00 Intake Total 1280 ml 700 ml Balance 1280 ml 700 ml medications Current Medications Medications Dose Ordered Sig/Cierra Route Start Time Stop Time Status Last Admin Dose Admin Sodium Chloride 1,000 ml @ 120 mls/hr Q8H20M IV 12/11/24 08:00 12/13/24 02:00 120 MLS/HR Acetaminophen/ Hydrocodone Bitart 1 tab Q4HP PRN PO 12/11/24 08:00 Ondansetron HCl 4 mg Q4HP PRN IV 12/11/24 08:00 Enoxaparin Sodium 40 mg DAILY SC 12/11/24 10:00 12/12/24 09:50 40 MG Acetaminophen 650 mg Q6HP PRN PO 12/11/24 08:00 Morphine Sulfate 2 mg Q4HPRN PRN IV 12/11/24 08:00 Famotidine 40 mg DAILY PO 12/11/24 10:00 12/12/24 09:50 40 MG Nitroglycerin 0.4 mg Q5MINP PRN SL 12/11/24 08:00 Morphine Sulfate 2 mg Q30M PRN IV 12/11/24 08:00 Hydralazine HCl 10 mg Q6HP PRN IV 12/11/24 13:30 Atorvastatin Calcium 40 mg HS PO 12/12/24 22:00 12/12/24 22:01 40 MG Lorazepam 1 mg ONCE PRN IV 12/12/24 10:45 Lorazepam 1 mg Q5MINP PRN IV 12/12/24 10:45 laboratory and microbiology Laboratory Tests 12/12/24 05:52 Test 12/12/24 05:52 Range/Units Serum Glucose 87 74-106 mg/dL Assessment/Plan Patient is a 69-year-old [place]-speaking lady who presented with dizziness and loss of consciousness. Information was obtained by talking to the patient and family members at bedside and over the phone. It seems that the patient lost consciousness for many minutes and had seizure-like activity at that point. She regained consciousness very slowly. Cardiology is involved to rule out cardiac etiology for presentation. Presentation is questioning seizures. Patient denies any palpitations. Patient denies any fall. Patient denies follow-up with elevator repair mechanic/physicians as outpatient. Not in acute distress. Lying flat in bed. No JVD. Mucosa is pink and wet. There was no goiter. There is no carotid bruit. Lungs are clear to auscultation. Not using accessory muscles of breathing. Cardiac: Regular, no thrill/gallop. Abdomen is soft. There is no mass. Bowel sound is positive. There is no hepatomegaly. There is no peripheral edema. Dorsalis pedis 2+ bilateral Denies previous past medical history. Mentions occasional vertigo for which takes unknown medication. Has had appendectomy and bilateral tubal ligation before. Creatinine: 0.83 - 0.83 Potassium: 3.5 - 4.1 Troponin (high sensitive): BNP: 21.69 LDL: 185 Chest x-ray revealed: IMPRESSION: No pulmonary airspace consolidation. CT of the head revealed: IMPRESSION: 1. No acute intracranial abnormality. MRI of the brain reported: IMPRESSION: No acute abnormal MRI findings of the brain. EKG reveals sinus rhythm with nonspecific ST-T changes Tele reveals sinus rhythm Echocardiogram reported: Left ventricle is mildly dilated with mildly reduced systolic function. LVEF was around 45%. Mild diffuse hypokinesis was seen. Diastolic function was considered normal. Right ventricle was normal-sized with normal systolic function. Both atria were normal-sized. Aortic valve was trileaflet. There was no aortic insufficiency/stenosis. There was no mitral regurgitation. There was trace tricuspid regurgitation. Pulmonary valve was not well visualized. Right ventricular systolic pressure was normal at 20 mm Hg. There was trace pericardial effusion. Patient is a 69-year-old female who presented with loss of consciousness. Presentation questions seizures activity. As per patient family members, the patient has had these episodes few times back. Presentation is in favor of seizures with postictal episode. Even though echocardiogram reveals mildly reduced systolic function, diastolic function was considered normal and at this point heart failure is not considered. Neurology on case. Loss of consciousness Seizure attack History of appendectomy History of vertigo Cardiac suggestion for management: Manage on telemetry Follow-up electrolytes and kidney function tests and correct abnormalities On Lipitor Neurology follow up Cardiac holloway is stable and can be followed as outpatient Long-term monitor can be arranged as outpatient Further evaluation and management depends on the above and clinical course A total of 55 minutes was spent reviewing the patient record, examining the patient, making a diagnostic and therapeutic plan, discussing this plan with medical personnel, following up on diagnostic studies and following the patient for clinical stability excluding any and all procedures. At least 50% of this time was spent in direct, [id number] contact. Thank you for allowing me to participate in this patient's care. Further recommendations will depend on patient's clinical course. Please do not hesitate to contact me if you have any questions or concerns. This medical document was created using electronic medical record system with [employer] computerized dictation system. Although this document has been carefully reviewed, there may still be some phonetic and typographical errors. These areas are purely typographical due to the imperfection of the software programs, and do not reflect any compromise in the patient's medical care. Plan discussed with: Other (nurse) PAOLA TEMPLETON MD Dec 13, 2024 08:59
--- NOTE | 2024-12-13 11:42 | DVHPN2 ---
Progress Note - Dictate Date Seen: Dec 13, 2024 Medical Necessity Reason Pt with a Central, PICC or Fol: No vital signs Vital Sign Date Time Temp Pulse Resp B/P (MAP) Pulse Ox O2 Delivery O2 Flow Rate FiO2 12/13/24 09:00 98.0 65 16 103/65 (78) 93 98.0 12/12/24 20:00 Room Air* 0 21 Total Intake and Output 12/12/24 12/12/24 12/13/24 15:00 23:00 07:00 Intake Total 1280 ml 700 ml Balance 1280 ml 700 ml medications Current Medications Medications Dose Ordered Sig/Cierra Route Start Time Stop Time Status Last Admin Dose Admin Sodium Chloride 1,000 ml @ 120 mls/hr Q8H20M IV 12/11/24 08:00 12/13/24 02:00 120 MLS/HR Acetaminophen/ Hydrocodone Bitart 1 tab Q4HP PRN PO 12/11/24 08:00 Ondansetron HCl 4 mg Q4HP PRN IV 12/11/24 08:00 Enoxaparin Sodium 40 mg DAILY SC 12/11/24 10:00 12/13/24 10:34 40 MG Acetaminophen 650 mg Q6HP PRN PO 12/11/24 08:00 Morphine Sulfate 2 mg Q4HPRN PRN IV 12/11/24 08:00 Famotidine 40 mg DAILY PO 12/11/24 10:00 12/13/24 10:34 40 MG Nitroglycerin 0.4 mg Q5MINP PRN SL 12/11/24 08:00 Morphine Sulfate 2 mg Q30M PRN IV 12/11/24 08:00 Hydralazine HCl 10 mg Q6HP PRN IV 12/11/24 13:30 Atorvastatin Calcium 40 mg HS PO 12/12/24 22:00 12/12/24 22:01 40 MG Lorazepam 1 mg ONCE PRN IV 12/12/24 10:45 Lorazepam 1 mg Q5MINP PRN IV 12/12/24 10:45 objective General Appearance: alert, no distress HEENT: EOMI, PERRLA, normal external inspect of ears, no icterus, no nasal drainage Neck: no carotid bruit, no jugular venous distention (JVD), no lymphadenopathy Chest: normal thorax Respiratory: clear to auscultation, normal air movement Cardiovascular: regular rate and rhythm, no diastolic murmur, no jugular venous distention (JVD), no rub, no systolic murmur Abdominal: soft, no hepatomegaly, no mass, no splenomegaly, no tenderness Genitourinary: grossly normal external Musculoskeletal: no joint tenderness, no swelling Extremities: normal pulses, no calf tenderness, no clubbing, no cyanosis, no edema Skin: no bruising, no jaundice, no rash Neurological: alert, No focal deficit laboratory and microbiology Laboratory Tests 12/12/24 05:52 Test 12/12/24 05:52 Range/Units Serum Glucose 87 74-106 mg/dL Problem List - Dizziness Neurology consult, MRI of the brain, orthostatic vitals, medication, monitoring - Syncope Cardiology consult, medication, monitoring -Benign essential hypertension Cardiology consult, echo, medication, lipid panel, monitoring -Breakthrough seizure Seizure precautions, antiepileptics Assessment/Plan Subjective: Patient is awake and alert. Objective: Patient was admitted for possible breakthrough seizure. She was recently seen in [place] for vertigo and she states seizures. I do not see any medications on her home medication list for treatment of seizures. She was given meclizine, however she states it was an injection. Patient was seen and evaluated by neurology. No antiepileptics needed at this time. Pending telepsych consult. Patient had possible syncope. Patient was seen by cardiology. She has been cleared for discharge by cardiology. Still waiting for neurology and psychology clearance. Plan: Continue current treatment. MRI is negative for CVA. Chest x-ray has no acute process. CT of the head is also negative. Plan discussed with: Patient, Other JUAN C MITCHELL NP Dec 13, 2024 11:42
--- NOTE | 2024-12-13 19:56 | DVHPN2 ---
Progress Note - Dictate Date Seen: Dec 13, 2024 Medical Necessity Reason Pt with a Central, PICC or Fol: No Subjective Ms. Thorne is a right-handed 69 years old female without a history of major medical problem, she was admitted for a chief complaint of convulsion. I have seen and examined the patient, I have talked to her nurse, all bilingual staff helped She is oriented x4, she reports doing fine, no new problem, Urinalysis, 12/28/2024: WBC: 12, urine leukocyte esterase: 3+ CBC, 12/28/2024: Unremarkable TBI/AST/ALT/AP, 12/12/2024: 1.4/20/12/57 TG/HDL/LDL/HDL, 12/11/2024: 208/261/185/47 MRI head, 12/11/2024: No acute abnormal MRI findings of the brain vital signs Vital Sign Date Time Temp Pulse Resp B/P (MAP) Pulse Ox O2 Delivery O2 Flow Rate FiO2 12/13/24 17:00 98.3 63 16 105/75 (85) 97 98.3 12/13/24 08:00 Room Air* 0 21 Total Intake and Output 12/12/24 12/12/24 12/13/24 15:00 23:00 07:00 Intake Total 1280 ml 700 ml Balance 1280 ml 700 ml medications Current Medications Medications Dose Ordered Sig/Cierra Route Start Time Stop Time Status Last Admin Dose Admin Sodium Chloride 1,000 ml @ 120 mls/hr Q8H20M IV 12/11/24 08:00 12/13/24 18:29 120 MLS/HR Acetaminophen/ Hydrocodone Bitart 1 tab Q4HP PRN PO 12/11/24 08:00 Ondansetron HCl 4 mg Q4HP PRN IV 12/11/24 08:00 Enoxaparin Sodium 40 mg DAILY SC 12/11/24 10:00 12/13/24 10:34 40 MG Acetaminophen 650 mg Q6HP PRN PO 12/11/24 08:00 Morphine Sulfate 2 mg Q4HPRN PRN IV 12/11/24 08:00 Famotidine 40 mg DAILY PO 12/11/24 10:00 12/13/24 10:34 40 MG Nitroglycerin 0.4 mg Q5MINP PRN SL 12/11/24 08:00 Morphine Sulfate 2 mg Q30M PRN IV 12/11/24 08:00 Hydralazine HCl 10 mg Q6HP PRN IV 12/11/24 13:30 Atorvastatin Calcium 40 mg HS PO 12/12/24 22:00 12/12/24 22:01 40 MG Lorazepam 1 mg ONCE PRN IV 12/12/24 10:45 Lorazepam 1 mg Q5MINP PRN IV 12/12/24 10:45 objective General: the patient is well developed and nourished. No acute distress. MENTAL STATUS: Subjective SPEECH, LANGUAGE, HIGHER CORTICAL FUNCTION: no aphasia or dysathria. CRANIAL NERVES: Pupils are equal, round and reactive. EOMs full and conjugate. Mild bilateral gaze evoked nystagmus. Facial sensation intact in all three divisions bilaterally. Mandibular strength intact. Facial muscles symmetrical and strength intact. SENSATION: Sensation to touch and pinprick is normal. MOTOR: Normal tone in the upper and lower extremity. Normal muscle bulk. No fasciculations. No abnormal movements or posturing. Muscle strength of the major groups in the extremities is 5/5. REFLEXES: Deep tendon reflexes normal and symmetrical. No pathological reflexes. CEREBELLAR/COORDINATION: Finger to nose and heel to love are normal bilaterally. GAIT/STATION: deferred. laboratory and microbiology Laboratory Tests 12/12/24 05:52 Test 12/12/24 05:52 Range/Units Serum Glucose 87 74-106 mg/dL Problem List Convulsion/seizure-like activity Epileptic seizure Nonepileptic seizure Syncopal event Vertigo ? Meniere's disease Rule out seizure ? Anxiety Assessment/Plan Monitoring Supportive treatment Telemetry EEG Ativan for seizure breakthrough Preventive seizure treatment is not indicated Tele psych consultation DVT prophylaxis GI prophylaxis Follow up her doctors SUJEY on discharge Cardiology on case More recommendation per clinical course This medical document was created using an electronic medical record system with [employer] dictation system. Although this document has been carefully reviewed, there may still be some phonetic and typographical errors. These areas are purely typographical due to imperfections of the software programs, and do not reflect any compromise in the patient's medical care. Prognosis poor Plan discussed with: Patient, Other Total Time (mins): 35 NAIMA MCDONALD MD Dec 13, 2024 19:56
--- NOTE | 2024-12-13 22:52 | DVHEEG2 ---
Neurology EEG Procedural Note Procedural Note EXAM DATE: 12/13/24 REFERRING DOCTOR: Dr. Mcdonald TECHNIQUE: Eighteen channels of EEG, 2 channels of EOG, and 1 channel of EKG were recorded using the International 10/20 system. CLINICAL DATA: The patient was referred for an EEG evaluation for the evidence of seizure disorder. MEDICATIONS: See chart BACKGROUND ACTIVITY: While the patient was awake, the background activity consisted of well regulated 10-11 Hz rhythmic waveforms, symmetrically distributed over both posterior quadrants and was reactive to eye opening. ACTIVATION: Hyperventilation: Not down Photic Stimulation: Not done Sleep: No seen IMPRESSION: This is a normal EEG. No focal, lateralized, or epileptiform features are noted. If clinically indicated to rule out a seizure disorder, recommend repeat EEG with sleep deprivation. The EKG channel showed a regular heart rate of 60/min[place] [address]. NAIMA MCDONALD MD Dec 13, 2024 22:52
[2024-12-14 05:00] VITALS: BP 113/72; PULSE 60; RESP 18; TEMP 98.1; O2SAT 94
[2024-12-14 08:00] VITALS: PULSE 57
--- NOTE | 2024-12-14 08:07 | DVHPN2 ---
Progress Note - Dictate Date Seen: Dec 14, 2024 Medical Necessity Reason Pt with a Central, PICC or Fol: No vital signs Vital Sign Date Time Temp Pulse Resp B/P (MAP) Pulse Ox O2 Delivery O2 Flow Rate FiO2 12/14/24 05:00 98.1 60 18 113/72 (86) 94 98.1 12/13/24 20:00 Room Air* 0 21 Total Intake and Output 12/13/24 12/13/24 12/14/24 15:00 23:00 07:00 Intake Total 2070 ml 500 ml Balance 2070 ml 500 ml medications Current Medications Medications Dose Ordered Sig/Cierra Route Start Time Stop Time Status Last Admin Dose Admin Sodium Chloride 1,000 ml @ 120 mls/hr Q8H20M IV 12/11/24 08:00 12/14/24 01:25 120 MLS/HR Acetaminophen/ Hydrocodone Bitart 1 tab Q4HP PRN PO 12/11/24 08:00 Ondansetron HCl 4 mg Q4HP PRN IV 12/11/24 08:00 Enoxaparin Sodium 40 mg DAILY SC 12/11/24 10:00 12/13/24 10:34 40 MG Acetaminophen 650 mg Q6HP PRN PO 12/11/24 08:00 Morphine Sulfate 2 mg Q4HPRN PRN IV 12/11/24 08:00 Famotidine 40 mg DAILY PO 12/11/24 10:00 12/13/24 10:34 40 MG Nitroglycerin 0.4 mg Q5MINP PRN SL 12/11/24 08:00 Morphine Sulfate 2 mg Q30M PRN IV 12/11/24 08:00 Hydralazine HCl 10 mg Q6HP PRN IV 12/11/24 13:30 Atorvastatin Calcium 40 mg HS PO 12/12/24 22:00 12/13/24 21:02 40 MG Lorazepam 1 mg ONCE PRN IV 12/12/24 10:45 Lorazepam 1 mg Q5MINP PRN IV 12/12/24 10:45 laboratory and microbiology Laboratory Tests 12/12/24 05:52 Test 12/12/24 05:52 Range/Units Serum Glucose 87 74-106 mg/dL Assessment/Plan Patient is a 69-year-old Chinese-speaking lady who presented with dizziness and loss of consciousness. Information was obtained by talking to the patient and family members at bedside and over the phone. It seems that the patient lost consciousness for many minutes and had seizure-like activity at that point. She regained consciousness very slowly. Cardiology is involved to rule out cardiac etiology for presentation. Presentation is questioning seizures. Patient denies any palpitations. Patient denies any fall. Patient denies follow-up with customer solutions specialist/physicians as outpatient. Not in acute distress. Lying flat in bed. No JVD. Mucosa is pink and wet. There was no goiter. There is no carotid bruit. Lungs are clear to auscultation. Not using accessory muscles of breathing. Cardiac: Regular, no thrill/gallop. Abdomen is soft. There is no mass. Bowel sound is positive. There is no hepatomegaly. There is no peripheral edema. Dorsalis pedis 2+ bilateral Denies previous past medical history. Mentions occasional vertigo for which takes unknown medication. Has had appendectomy and bilateral tubal ligation before. Creatinine: 0.83 - 0.83 Potassium: 3.5 - 4.1 Troponin (high sensitive): BNP: 21.69 LDL: 185 Chest x-ray revealed: IMPRESSION: No pulmonary airspace consolidation. CT of the head revealed: IMPRESSION: 1. No acute intracranial abnormality. MRI of the brain reported: IMPRESSION: No acute abnormal MRI findings of the brain. EKG reveals sinus rhythm with nonspecific ST-T changes EEG performed and revealed: This is a normal EEG. No focal, lateralized, or epileptiform features are noted. If clinically indicated to rule out a seizure disorder, recommend repeat EEG with sleep deprivation. The EKG channel showed a regular heart rate of 60/min. Tele reveals sinus rhythm Echocardiogram reported: Left ventricle is mildly dilated with mildly reduced systolic function. LVEF was around 45%. Mild diffuse hypokinesis was seen. Diastolic function was considered normal. Right ventricle was normal-sized with normal systolic function. Both atria were normal-sized. Aortic valve was trileaflet. There was no aortic insufficiency/stenosis. There was no mitral regurgitation. There was trace tricuspid regurgitation. Pulmonary valve was not well visualized. Right ventricular systolic pressure was normal at 20 mm Hg. There was trace pericardial effusion. Patient is a 69-year-old female who presented with loss of consciousness. Presentation questions seizures activity. As per patient family members, the patient has had these episodes few times back. Presentation is in favor of seizures with postictal episode. Even though echocardiogram reveals mildly reduced systolic function, diastolic function was considered normal and at this point heart failure is not considered. Neurology on case. Loss of consciousness Seizure attack History of appendectomy History of vertigo Cardiac suggestion for management: Manage on telemetry Follow-up electrolytes and kidney function tests and correct abnormalities On Lipitor Neurology follow up Cardiac holloway is stable and can be followed as outpatient Long-term monitor can be arranged as outpatient Further evaluation and management depends on the above and clinical course A total of 55 minutes was spent reviewing the patient record, examining the patient, making a diagnostic and therapeutic plan, discussing this plan with medical personnel, following up on diagnostic studies and following the patient for clinical stability excluding any and all procedures. At least 50% of this time was spent in direct, [id number] contact. Thank you for allowing me to participate in this patient's care. Further recommendations will depend on patient's clinical course. Please do not hesitate to contact me if you have any questions or concerns. This medical document was created using electronic medical record system with [employer] computerized dictation system. Although this document has been carefully reviewed, there may still be some phonetic and typographical errors. These areas are purely typographical due to the imperfection of the software programs, and do not reflect any compromise in the patient's medical care. Plan discussed with: Patient, Other (nurse) PAOLA TEMPLETON MD Dec 14, 2024 08:07
[2024-12-14 09:00] VITALS: BP 101/61; PULSE 64; RESP 18; TEMP 98.4; O2SAT 94
--- NOTE | 2024-12-14 10:35 | DVHPN2 ---
Progress Note - Dictate Date Seen: Dec 14, 2024 Medical Necessity Reason Pt with a Central, PICC or Fol: No Subjective Ms. Thorne is a right-handed 69 years old female without a history of major medical problem, she was admitted for a chief complaint of convulsion. I have seen and examined the patient, I have talked to her nurse, she is oriented x4, she reports doing fine, no new problem According to her RN, family reported that she was under a lot of stress Urinalysis, 12/28/2024: WBC: 12, urine leukocyte esterase: 3+ CBC, 12/28/2024: Unremarkable TBI/AST/ALT/AP, 12/12/2024: 1.4/20/12/57 TG/HDL/LDL/HDL, 12/11/2024: 208/261/185/47 EEG, 12/13/24: Normal MRI head, 12/11/2024: No acute abnormal MRI findings of the brain vital signs Vital Sign Date Time Temp Pulse Resp B/P (MAP) Pulse Ox O2 Delivery O2 Flow Rate FiO2 12/14/24 09:00 98.4 64 18 101/61 (74) 94 98.4 12/14/24 08:09 Room Air* 0 21 Total Intake and Output 12/13/24 12/13/24 12/14/24 15:00 23:00 07:00 Intake Total 2070 ml 500 ml Balance 2070 ml 500 ml medications Current Medications Medications Dose Ordered Sig/Cierra Route Start Time Stop Time Status Last Admin Dose Admin Sodium Chloride 1,000 ml @ 120 mls/hr Q8H20M IV 12/11/24 08:00 12/14/24 01:25 120 MLS/HR Acetaminophen/ Hydrocodone Bitart 1 tab Q4HP PRN PO 12/11/24 08:00 Ondansetron HCl 4 mg Q4HP PRN IV 12/11/24 08:00 Enoxaparin Sodium 40 mg DAILY SC 12/11/24 10:00 12/14/24 09:35 40 MG Acetaminophen 650 mg Q6HP PRN PO 12/11/24 08:00 Morphine Sulfate 2 mg Q4HPRN PRN IV 12/11/24 08:00 Famotidine 40 mg DAILY PO 12/11/24 10:00 12/13/24 10:34 40 MG Nitroglycerin 0.4 mg Q5MINP PRN SL 12/11/24 08:00 Morphine Sulfate 2 mg Q30M PRN IV 12/11/24 08:00 Hydralazine HCl 10 mg Q6HP PRN IV 12/11/24 13:30 Atorvastatin Calcium 40 mg HS PO 12/12/24 22:00 12/13/24 21:02 40 MG Lorazepam 1 mg ONCE PRN IV 12/12/24 10:45 Lorazepam 1 mg Q5MINP PRN IV 12/12/24 10:45 objective General: the patient is well developed and nourished. No acute distress. MENTAL STATUS: Subjective SPEECH, LANGUAGE, HIGHER CORTICAL FUNCTION: no aphasia or dysathria. CRANIAL NERVES: Pupils are equal, round and reactive. EOMs full and conjugate. Mild bilateral gaze evoked nystagmus. Facial sensation intact in all three divisions bilaterally. Mandibular strength intact. Facial muscles symmetrical and strength intact. SENSATION: Sensation to touch and pinprick is normal. MOTOR: Normal tone in the upper and lower extremity. Normal muscle bulk. No fasciculations. No abnormal movements or posturing. Muscle strength of the major groups in the extremities is 5/5. REFLEXES: Deep tendon reflexes normal and symmetrical. No pathological reflexes. CEREBELLAR/COORDINATION: Finger to nose and heel to love are normal bilaterally. GAIT/STATION: deferred. laboratory and microbiology Laboratory Tests 12/12/24 05:52 Test 12/12/24 05:52 Range/Units Serum Glucose 87 74-106 mg/dL Problem List Convulsion/seizure-like activity Epileptic seizure Nonepileptic seizure Syncopal event Vertigo ? Meniere's disease Rule out seizure ? Anxiety Assessment/Plan Monitoring Supportive treatment Telemetry Ativan for seizure breakthrough Preventive seizure treatment is not indicated Tele psych consultation DVT prophylaxis GI prophylaxis Follow up her doctors SUJEY on discharge Cardiology on case More recommendation per clinical course This medical document was created using an electronic medical record system with [employer] dictation system. Although this document has been carefully reviewed, there may still be some phonetic and typographical errors. These areas are purely typographical due to imperfections of the software programs, and do not reflect any compromise in the patient's medical care. Prognosis poor Plan discussed with: Other NAIMA MCDONALD MD Dec 14, 2024 10:35
--- NOTE | 2024-12-14 12:35 | DVHINCON2 ---
Date of Service if different f: Dec 14, 2024 Time of Service: 11:30 Consultation ([place]) Labs Laboratory Tests Test 12/11/24 04:19 12/11/24 07:09 12/11/24 09:00 12/12/24 05:52 Hemoglobin A1c 5.3 % A1C (<5.7) B-Type Natriuretic Peptide 21.69 pg/mL (0-100) Triglycerides Level 208 mg/dL (< 150) Cholesterol Level 261 mg/dL (< 200) LDL Cholesterol 185 mg/dL (< 100) HDL Cholesterol 47 mg/dL (40-59) Troponin I High Sensitivity 28 ng/L (</=34) Urine Color Straw (Yellow) Urine Clarity Clear (Clear) Urine pH 5.5 (5.0-9.0) Urine Specific [place] 1.009 (1.001-1.035) Urine Protein Negative (Negative) Urine Ketones Negative (Negative) Urine Blood Negative /uL (Negative) Urine Nitrite Negative (Negative) Urine Bilirubin Negative (Negative) Urine Urobilinogen Normal mg/dL (Negative) Urine Leukocyte Esterase 3+ /uL (Negative) Urine RBC 4 /hpf (0 - 4) Urine Microscopic WBC 11 /HPF (0-5) Urine Squamous Epithelial Cells Few /hpf (<5) Urine Bacteria None seen /hpf (None Seen) Urine Mucus Few (None Seen) Urine Glucose Normal mg/dL (Normal) White Blood Count 5.4 10^3/uL (4.4-10.8) Red Blood Count 3.89 10^6/uL (4.0-5.20) Hemoglobin 11.8 g/dL (12.2-16.2) Hematocrit 34.5 % (36.0-46.0) Mean Corpuscular Volume 88.7 fL (80.0-100.0) Mean Corpuscular Hemoglobin 30.4 pg (28.0-32.0) Mean Corpuscular Hemoglobin Concent 34.3 g/dL (32.0-36.0) Red Cell Distribution Width 14.2 % (11.8-14.3) Platelet Count 267 10^3/uL (140-450) Mean Platelet Volume 7.3 fL (6.9-10.8) Neutrophils (%) (Auto) 48.3 % (37.0-80.0) Lymphocytes (%) (Auto) 41.5 % (10.0-50.0) Monocytes (%) (Auto) 7.0 % (0.0-12.0) Eosinophils (%) (Auto) 2.7 % (0.0-7.0) Basophils (%) (Auto) 0.5 % (0.0-2.0) Neutrophils # (Auto) 2.6 10 ^3/uL (1.6-8.6) Lymphocytes # (Auto) 2.3 10 ^3/uL (0.4-5.4) Monocytes # (Auto) 0.4 10 ^3/uL (0-1.3) Eosinophils # (Auto) 0.1 10 ^3/uL (0-0.8) Basophils # (Auto) 0 10 ^3/uL (0-0.2) Nucleated Red Blood Cells 0.0 % Sodium Level 141 mmol/L (136-145) Potassium Level 4.1 mmol/L (3.5-5.1) Chloride Level 109 mmol/L (98-107) Carbon Dioxide Level 25 mmol/L (20-31) Anion Gap 7 (5-15) Blood Urea Nitrogen 13 mg/dL (9-23) Creatinine 0.83 mg/dL (0.550-1.02) Glomerular Filtration Rate Calc 77 mL/min (>90) BUN/Creatinine Ratio 15.7 (10.0-20.0) Serum Glucose 87 mg/dL (74-106) Calcium Level 9.2 mg/dL (8.7-10.4) Total Bilirubin 1.4 mg/dL (0.2-1.0) Aspartate Amino Transf (AST/SGOT) 20 U/L (13-40) Alanine Aminotransferase (ALT/SGPT) 12 U/L (7-40) Alkaline Phosphatase 57 U/L (46-116) Total Protein 5.8 g/dL (5.7-8.2) Albumin 3.6 g/dL (3.2-4.8) Vitals Vital Signs Date Time Temp Pulse Resp B/P (MAP) Pulse Ox O2 Delivery O2 Flow Rate FiO2 12/14/24 09:00 98.4 64 18 101/61 (74) 94 98.4 12/14/24 08:09 Room Air* 0 21 Current medications Current Medications Medications Dose Ordered Sig/Cierra Route Start Time Stop Time Status Last Admin Dose Admin Sodium Chloride 1,000 ml @ 120 mls/hr Q8H20M IV 12/11/24 08:00 12/14/24 01:25 120 MLS/HR Acetaminophen/ Hydrocodone Bitart 1 tab Q4HP PRN PO 12/11/24 08:00 Ondansetron HCl 4 mg Q4HP PRN IV 12/11/24 08:00 Enoxaparin Sodium 40 mg DAILY SC 12/11/24 10:00 12/14/24 09:35 40 MG Acetaminophen 650 mg Q6HP PRN PO 12/11/24 08:00 Morphine Sulfate 2 mg Q4HPRN PRN IV 12/11/24 08:00 Famotidine 40 mg DAILY PO 12/11/24 10:00 12/13/24 10:34 40 MG Nitroglycerin 0.4 mg Q5MINP PRN SL 12/11/24 08:00 Morphine Sulfate 2 mg Q30M PRN IV 12/11/24 08:00 Hydralazine HCl 10 mg Q6HP PRN IV 12/11/24 13:30 Atorvastatin Calcium 40 mg HS PO 12/12/24 22:00 12/13/24 21:02 40 MG Lorazepam 1 mg ONCE PRN IV 12/12/24 10:45 Lorazepam 1 mg Q5MINP PRN IV 12/12/24 10:45 PSYCHIATRY CONSULTATION INITIAL EVALUATION REASON FOR CONSULT: Anxiety HPI: 69yo W who presented following convulsions. On interview, pt is smiling, calm. She is able to give her name, location, the date. She is in the hospital, I dont know, I had an attack. She cannot expound, she does not remember. She was asleep, then went in the ambulance, and when she roused, she was at the hospital. This has happened in the past. 3-4 months ago. Pts family is at the bedside, including her 19yo granddaughter Elma, and her , Shashi. Per her , pt was in bed, screamed, started shaking. Pt lost consciousness for about 15 minutes. She was observed convulsing for about 10 minutes. In the past, pt would just stare. Pt was in bed, they were just talking, then this happened. Asked Herlinda what she thinks is going on. Pt says at times I have many thoughts and I just feel sad. She says she is stressed out. Asked about what, she does not give details. She has a son in correction. He has been there 8 months. When asked why it makes her sad, she gets teary eyed, says he is not free and he has children. Her sons legal issues have been ongoing about 8 months. Pt first had the episode of staring about a year ago. Pts says Herlinda stresses a lot. They try to help her calm down. Stresses about her children. Pt says she sleeps well some nights, some nights she does not and takes pills to help. She does not know the name, got the pills from [place]. She sleeps well most nights. Pts energy and concentration are fine. Her appetite is low, but still is able to eat. Pt thinks she has had episodes of panic in the past. She describes her mood as okay, but does get sad at times. She denies anxiety currently. Denies current symptoms of elevated mood or psychosis. PSYCHIATRIC HISTORY: DIAGNOSIS: History of depression. ADMISSIONS: None prior MEDICATION TRIALS: None prior OUTPATIENT CARE: None prior THERAPY: None prior SI/SELF-INJURY/SUICIDE ATTEMPT: Denies any. No access to firearms. SUBSTANCE USE: Denies any RELEVANT MEDICAL HISTORY: None known SOCIAL HISTORY: Grew up in [facility]. Completed 1st grade. Lives with her . She has 7 children. ALLERGIES: None MENTAL STATUS EXAMINATION: The patient is a 69-year-old woman who appears her stated age. She is well- groomed and dressed appropriately. She is calm, cooperative, and maintains appropriate eye contact. Her speech is spontaneous, normal in rate, volume, and tone. Her mood is described as okay, and her affect is congruent and full range. Thought processes are logical and goal-directed. There is no evidence of hallucinations, delusions, or disorganized thinking. She denies suicidal or homicidal ideation, and there is no perceptible paranoia. She is alert and oriented to person, place, and time. Memory is grossly intact. Insight and judgment are fair. DIAGNOSIS: F41.9 Anxiety disorder, unspecified ASSESSMENT: 69-year-old woman with a history of depression who presented after a witnessed episode described by her family as convulsions and LOC. Although the event appeared seizure-like, and she has had similar episodes in the past, she is unable to recall the incident. While it is unclear whether the current episode can be definitively attributed to anxiety, the patient does report chronic worry and emotional distress in the context of multiple psychosocial stressors, including her sons incarceration. She endorses intermittent sadness and poor appetite, though her energy and concentration remain adequate. She reports no active anxiety at the time of evaluation, but has experienced episodes suggestive of panic in the past. RECOMMENDATIONS: 1. LEGAL: No legal psychiatric hold indicated. Patient does not meet 5150 criteria. 2. DISPOSITION: Patient is psychiatrically stable and can be safely discharged home when medically stable. 3. MEDICATIONS: Consider mirtazapine (Remeron) 7.5 mg nightly for symptoms of anxiety, mood and poor appetite. Patient prefers a medication, such as this, which can aid with sleep as well. 4. MEDICAL CONSIDERATIONS: Evaluate for possible seizure activity if clinically indicated by neurology or medicine teams. 5. OTHER: Referral for outpatient psychiatric care is recommended. Patient may also benefit from psychotherapy focused on coping with life stressors and adjustment. Encourage follow-up for further evaluation and monitoring of symptoms. LAUREN AG MD Dec 14, 2024 12:35
[2024-12-14 12:55] VITALS: BP 107/69; PULSE 73; RESP 18; TEMP 97.5; O2SAT 99
--- NOTE | 2024-12-14 14:23 | DVHPN2 ---
Progress Note - Dictate Medical Necessity Reason Pt with a Central, PICC or Fol: No vital signs Vital Sign Date Time Temp Pulse Resp B/P (MAP) Pulse Ox O2 Delivery O2 Flow Rate FiO2 12/14/24 12:55 97.5 73 18 107/69 (82) 99 97.5 12/14/24 08:09 Room Air* 0 21 Total Intake and Output 12/13/24 12/13/24 12/14/24 15:00 23:00 07:00 Intake Total 2070 ml 500 ml Balance 2070 ml 500 ml medications Current Medications Medications Dose Ordered Sig/Cierra Route Start Time Stop Time Status Last Admin Dose Admin Sodium Chloride 1,000 ml @ 120 mls/hr Q8H20M IV 12/11/24 08:00 12/14/24 11:00 120 MLS/HR Acetaminophen/ Hydrocodone Bitart 1 tab Q4HP PRN PO 12/11/24 08:00 Ondansetron HCl 4 mg Q4HP PRN IV 12/11/24 08:00 Enoxaparin Sodium 40 mg DAILY SC 12/11/24 10:00 12/14/24 09:35 40 MG Acetaminophen 650 mg Q6HP PRN PO 12/11/24 08:00 Morphine Sulfate 2 mg Q4HPRN PRN IV 12/11/24 08:00 Famotidine 40 mg DAILY PO 12/11/24 10:00 12/13/24 10:34 40 MG Nitroglycerin 0.4 mg Q5MINP PRN SL 12/11/24 08:00 Morphine Sulfate 2 mg Q30M PRN IV 12/11/24 08:00 Hydralazine HCl 10 mg Q6HP PRN IV 12/11/24 13:30 Atorvastatin Calcium 40 mg HS PO 12/12/24 22:00 12/13/24 21:02 40 MG Lorazepam 1 mg ONCE PRN IV 12/12/24 10:45 Lorazepam 1 mg Q5MINP PRN IV 12/12/24 10:45 objective General Appearance: alert, no distress HEENT: EOMI, PERRLA, normal external inspect of ears, no icterus, no nasal drainage Neck: no carotid bruit, no jugular venous distention (JVD), no lymphadenopathy Chest: normal thorax Respiratory: clear to auscultation, normal air movement Cardiovascular: regular rate and rhythm, no diastolic murmur, no jugular venous distention (JVD), no rub, no systolic murmur Abdominal: soft, no hepatomegaly, no mass, no splenomegaly, no tenderness Genitourinary: grossly normal external Musculoskeletal: no joint tenderness, no swelling Extremities: normal pulses, no calf tenderness, no clubbing, no cyanosis, no edema Skin: no bruising, no jaundice, no rash Neurological: alert, No focal deficit laboratory and microbiology Laboratory Tests 12/12/24 05:52 Test 12/12/24 05:52 Range/Units Serum Glucose 87 74-106 mg/dL Problem List - Dizziness Neurology consult, MRI of the brain, orthostatic vitals, medication, monitoring - Syncope Cardiology consult, medication, monitoring -Benign essential hypertension Cardiology consult, echo, medication, lipid panel, monitoring -Breakthrough seizure Seizure precautions, antiepileptics Assessment/Plan Subjective: Patient is awake and alert. Objective: Patient was admitted for possible breakthrough seizure. She was recently seen in [place] for vertigo and she states seizures. I do not see any medications on her home medication list for treatment of seizures. She was given meclizine, however she states it was an injection. Patient was seen and evaluated by neurology. No antiepileptics needed at this time. Pending telepsych consult. Patient had possible syncope. Patient was seen by cardiology. She has been cleared for discharge by cardiology. Still waiting for neurology and psychology clearance. Plan: Continue current treatment. MRI is negative for CVA. Chest x-ray has no acute process. CT of the head is also negative. JUAN C MITCHELL NP Dec 14, 2024 14:23
[2024-12-14] MEDS ORDERED: MIRT-93 PO (14:35)
[2024-12-14] MEDS ORDERED: MECL12.586 PO (14:35)
[2024-12-14 14:38] VITALS: TEMP 36.4
--- NOTE | 2024-12-14 14:38 | DVHDS2 ---
Discharge Summary Date of Admission Dec 11, 2024 at 07:58 Date of Discharge: Dec 14, 2024 Labs/Diagnostic Data: Laboratory Results Test 12/12/24 05:52 12/11/24 09:00 12/11/24 07:09 12/11/24 04:19 White Blood Count 5.4 10^3/uL (4.4-10.8) Red Blood Count 3.89 10^6/uL (4.0-5.20) Hemoglobin 11.8 g/dL (12.2-16.2) Hematocrit 34.5 % (36.0-46.0) Mean Corpuscular Volume 88.7 fL (80.0-100.0) Mean Corpuscular Hemoglobin 30.4 pg (28.0-32.0) Mean Corpuscular Hemoglobin Concent 34.3 g/dL (32.0-36.0) Red Cell Distribution Width 14.2 % (11.8-14.3) Platelet Count 267 10^3/uL (140-450) Mean Platelet Volume 7.3 fL (6.9-10.8) Neutrophils (%) (Auto) 48.3 % (37.0-80.0) Lymphocytes (%) (Auto) 41.5 % (10.0-50.0) Monocytes (%) (Auto) 7.0 % (0.0-12.0) Eosinophils (%) (Auto) 2.7 % (0.0-7.0) Basophils (%) (Auto) 0.5 % (0.0-2.0) Neutrophils # (Auto) 2.6 10 ^3/uL (1.6-8.6) Lymphocytes # (Auto) 2.3 10 ^3/uL (0.4-5.4) Monocytes # (Auto) 0.4 10 ^3/uL (0-1.3) Eosinophils # (Auto) 0.1 10 ^3/uL (0-0.8) Basophils # (Auto) 0 10 ^3/uL (0-0.2) Nucleated Red Blood Cells 0.0 % Sodium Level 141 mmol/L (136-145) Potassium Level 4.1 mmol/L (3.5-5.1) Chloride Level 109 mmol/L (98-107) Carbon Dioxide Level 25 mmol/L (20-31) Anion Gap 7 (5-15) Blood Urea Nitrogen 13 mg/dL (9-23) Creatinine 0.83 mg/dL (0.550-1.02) Glomerular Filtration Rate Calc 77 mL/min (>90) BUN/Creatinine Ratio 15.7 (10.0-20.0) Serum Glucose 87 mg/dL (74-106) Calcium Level 9.2 mg/dL (8.7-10.4) Total Bilirubin 1.4 mg/dL (0.2-1.0) Aspartate Amino Transferase (AST) 20 U/L (13-40) Alanine Aminotransferase (ALT) 12 U/L (7-40) Alkaline Phosphatase 57 U/L (46-116) Total Protein 5.8 g/dL (5.7-8.2) Albumin 3.6 g/dL (3.2-4.8) Urine Color Straw (Yellow) Urine Clarity Clear (Clear) Urine pH 5.5 (5.0-9.0) Urine Specific [place] 1.009 (1.001-1.035) Urine Protein Negative (Negative) Urine Ketones Negative (Negative) Urine Blood Negative /uL (Negative) Urine Nitrite Negative (Negative) Urine Bilirubin Negative (Negative) Urine Urobilinogen Normal mg/dL (Negative) Urine Leukocyte Esterase 3+ /uL (Negative) Urine RBC 4 /hpf (0 - 4) Urine Microscopic WBC 11 /HPF (0-5) Urine Squamous Epithelial Cells Few /hpf (<5) Urine Bacteria None seen /hpf (None Seen) Urine Mucus Few (None Seen) Urine Glucose Normal mg/dL (Normal) Troponin I High Sensitivity 28 ng/L (</=34) Hemoglobin A1c 5.3 % A1C (<5.7) B-Type Natriuretic Peptide 21.69 pg/mL (0-100) Triglycerides Level 208 mg/dL (< 150) Cholesterol Level 261 mg/dL (< 200) LDL Cholesterol 185 mg/dL (< 100) HDL Cholesterol 47 mg/dL (40-59) Other Laboratory Tests 12/12/24 05:52 Brief Hx & Hospital Course: 69 year old female is complaining of dizziness. Family members stated they noticed patient was confused and non verbal, therefore EMS were called. Blood sugar was 89 with blood pressure of 151/77. While in the emergency department the patient was evaluated by the provider. Patient will be admitted for further evaluation and treatment. I discussed admission with the patient/family and is in agreement to treatment plan. Patient was admitted on December 11, 2024 with possible seizures. Patient also had complaints of a syncopal episode. Patient was seen by cardiology and neurology. Echocardiogram was done. No congestive heart failure was found. Per cardiology patient did not have a single episode, patient had possible seizure. Patient was seen by a neurologist, Doctor Christiansen, an EEG was done. Per neurology patient most likely is not having true seizures, could be psychogenic. He did recommend a psychiatric consult. Patient was seen by tele psych and they stated the patient most likely was having convulsions and panic attack. Patient had complaints of feeling sadness and not being able to sleep and having stress. was also involved in the consult, tele psych did recommend starting Remeron 7.5mg nightly. Patient had complaints of dizziness, however, she has a diagnosis of vertigo, and she states she takes meclizine. Patient said she was seen in [place] for this and she was given injections. Patient was cleared for discharge by cardiology and neurology. She was discharged home on medications as recommended by tele psych, no anti-epileptics needed according to neurology. Remeron should assist patient with sleep and anxiety. I did send meclizine oral pills for her dizziness and instructed her to follow up with her primary care provider for further workup for vertigo. There were no complaints or new complaints upon discharge, all questions and concerns were answered. Patient was advised to return to the ER or call 911 if any headaches, dizziness, shortness of breath, chest pain, bleeding, fevers, or worsening of medical condition. Patient/Family was counseled about treatment plan, medications, possible side effects, patientverbalized understanding. All questions were answered to the best of my ability. The patient symptoms improved and they are okay to be DC. Condition at Discharge: Stable Final Diagnosis/Problems List Dizziness r/t previously diagnosed vertigo. Continue Meclizine as needed and f/u pcp Seizures- ruled out, could by psychogenic. Most likely convulsions/panic attack no seizure medications needed. Start Remron at night for sleep and anxiety. f/u pcp syncope ruled out, stable echocardiogram Discharge Disposition: Home Discharge Instruct/Medications Diet: Cardiac 2g Na,low cholest Activity: No Restrictions, As Tolerated Scheduled Mirtazapine (Remeron), 0.5 TAB PO QPM Naproxen (Naprosyn Tablet), 1 TAB PO BID, (Reported) Scheduled PRN Acetaminophen (Acetaminophen), 325 MG PO Q4HP PRN for MILD PAIN, (Reported) Meclizine Hcl (Meclizine Hcl), 1 TAB PO TID PRN Discharge Statement: "Patient was advised to return to the ER or call 911 if any headaches, dizziness, shortness of breath, chest pain, abdominal pain, bleeding, fevers, or worsening of medical condition. Patient was counseled about treatment plan, medications, possible side effects, patientverbalized understanding. All questions were answered to the best of my ability. This discharge took greater then 30 minutes in planning, reviewing documentation, counseling the patient, and discussing with other team members." ASSESSMENT ASSESSMENT Assessment Dizziness r/t previously diagnosed vertigo. Continue Meclizine as needed and f/u pcp Seizures- ruled out, could by psychogenic. Most likely convulsions/panic attack no seizure medications needed. Start Remron at night for sleep and anxiety. f/u pcp syncope ruled out, stable echocardiogram JUAN C MITCHELL NP Dec 14, 2024 14:38
== END 2024-12-14 16:00 | disposition home or self-care (01) | DRG 149 ==
LOC: EDBD 03:18 → ER 03:18 → OVERFLOW 07:58 → TELE-EAST 10:49
PROVIDERS: ADMIT Nurse Practitioner; ATTEND Nurse Practitioner
DX: H81.10 Benign paroxysmal vertigo, unspecified ear (principal); F41.0 Panic disorder [episodic paroxysmal anxiety]; I10 Essential (primary) hypertension; F32.A Depression, unspecified; H92.02 Otalgia, left ear; Z79.899 Other long term (current) drug therapy; Z90.49 Acquired absence of other specified parts of digestive tract; R56.9 Unspecified convulsions
CPT/HCPCS: 36415; 70450; 70551; 71045; 80048; 80053; 80061; 81001; 83036; 83880; 84484; 85025; 93005; 93306; 95819; 96360; 96361; G0378